=== PATIENT | female | born 1975 | race Caucasian/White ===

== ENCOUNTER 2018-09-30 05:47 | Emergency (ER) | payer OTHER, MEDICARE ==
[~2018-09-30] VITALS: Ht 162.6 cm; Wt 70.3 kg
[~2018-09-30 05:47] MED LIST: BACL10 PO; Bactrim Ds Tab1 EACH PO; Ferrous Sulfat325 M2 PO; GABA300; OMEPRAZOLE MAGN20 MG; [UNRECOGNIZED DRUG - OTHER]
[2018-09-30] MEDS ORDERED: Depo-Prove150 MG/11 (06:25)
[2018-09-30 07:39] LABS: Source, Urine Catheter
[2018-09-30 07:42] LABS: Bilirubin, Urine Neg (Neg); Blood, Urine 5+ (Neg); Glucose Qualitative, Urine Neg (Neg); Ketones, Urine 1+ (Neg); Leukocyte Esterase, Urine 3+ (Neg); Nitrite, Urine Neg (Neg); Protein, Urine 3+ (Neg); Specific Gravity, Urine 1.025 (1.003-1.022); Urobilinogen, Urine 1+ (Normal)
[2018-09-30 07:50] LABS: Appearance, Urine Hazy (Clear); Color, Urine Yellow (P-Yellow)
[2018-09-30 07:53] LABS: Bacteria Mod /hpf; Mucus Mod (0-Heavy); Red Blood Cells, Urine TNTC /hpf (0-2); Squamous Epithelial Cells Few /hpf (Few)
== END 2018-09-30 08:05 | disposition home or self-care (01) ==
LOC: ER 05:47
PROVIDERS: Emergency Medicine
DX: T83.091A Other mechanical complication of indwelling urethral catheter, initial encounter (principal); R33.9 Retention of urine, unspecified; G35 Multiple sclerosis; L89.159 Pressure ulcer of sacral region, unspecified stage; L89.319 Pressure ulcer of right buttock, unspecified stage; F17.200 Nicotine dependence, unspecified, uncomplicated
CPT/HCPCS: 51702; 51798; 81001; 87077; 87086; 87186; 99283

== ENCOUNTER 2018-10-12 09:49 | Emergency (ER) | payer MEDICARE ==
[~2018-10-12] VITALS: Ht 162.6 cm; Wt 72.6 kg
[~2018-10-12 09:49] MED LIST changes: +Depo-Prove150 MG/11
== END 2018-10-12 12:38 | disposition home or self-care (01) ==
LOC: ER 09:49
DX: T83.031A Leakage of indwelling urethral catheter, initial encounter (principal); Z79.899 Other long term (current) drug therapy; F17.200 Nicotine dependence, unspecified, uncomplicated
CPT/HCPCS: 51702; 99283

== ENCOUNTER 2018-11-18 12:14 | Emergency (ER) | payer MEDICARE ==
[~2018-11-18] VITALS: Ht 162.6 cm; Wt 77.1 kg
[2018-11-18 15:00] LABS: Source, Urine Catheter
[2018-11-18 15:16] LABS: Bilirubin, Urine Neg (Neg); Blood, Urine 5+ (Neg); Glucose Qualitative, Urine Neg (Neg); Ketones, Urine Neg (Neg); Leukocyte Esterase, Urine 3+ (Neg); Nitrite, Urine Pos (Neg); Protein, Urine 2+ (Neg); Specific Gravity, Urine 1.015 (1.003-1.022); Urobilinogen, Urine NORM (Normal)
[2018-11-18] MEDS ORDERED: TRAZ50 PO (15:22)
[2018-11-18] MEDS ORDERED: OMEPRAZOLE MAGN20 MG PO (15:23)
[2018-11-18 15:51] LABS: Appearance, Urine Cloudy (Clear); Color, Urine Yellow (P-Yellow)
[2018-11-18 15:52] LABS: Bacteria Many /hpf; Red Blood Cells, Urine 50-100 /hpf (0-2); Squamous Epithelial Cells Few /hpf (Few); White Blood Cells, Urine 25-50 /hpf (0-5)
== END 2018-11-18 16:45 | disposition home or self-care (01) ==
LOC: ER 12:14
PROVIDERS: Physician Assistant
DX: T83.038A Leakage of other urinary catheter, initial encounter (principal); F17.200 Nicotine dependence, unspecified, uncomplicated; Z79.899 Other long term (current) drug therapy
CPT/HCPCS: 51702; 81001; 87077; 87086; 87186; 99283

== ENCOUNTER 2019-03-22 03:35 | Emergency (ER) | payer MEDICARE, OTHER, SELFPAY ==
[~2019-03-22] VITALS: Ht 160 cm; Wt 77.1 kg
[~2019-03-22 03:35] MED LIST changes: -BACL10 PO; -GABA300
[2019-03-22 05:36] LABS: Source, Urine Catheter
[2019-03-22 05:42] LABS: Bilirubin, Urine Neg (Neg); Blood, Urine 4+ (Neg); Glucose Qualitative, Urine Neg (Neg); Ketones, Urine Neg (Neg); Leukocyte Esterase, Urine 3+ (Neg); Nitrite, Urine Pos (Neg); Protein, Urine 3+ (Neg); Urobilinogen, Urine NORM (Normal); pH, Urine 6.5 (5.0-8.0)
[2019-03-22 05:44] LABS: Anion Gap 8 mmol/L (6-16); Blood Urea Nitrogen 15 mg/dL (8-24); Bun/Creatinine Ratio 30.1 (12.0-20.0); CO2, Blood 25 mmol/L (21-32); Calcium, Blood 9.5 mg/dL (8.5-10.1); Chloride, Blood 110 mmol/L (98-108); Glomerular Filtration Rate >60 (60-); Glucose, Blood 90 mg/dL (70-99); Potassium, Blood 3.6 mmol/L (3.5-5.5); Sodium, Blood 143 mmol/L (136-145)
[2019-03-22 06:07] LABS: Appearance, Urine Hazy (Clear); Color, Urine Yellow (P-Yellow); White Blood Cells, Urine 25-50 /hpf (0-5)
[2019-03-22 06:08] LABS: Amorphous Light ({null, 0-Heavy}); Bacteria Many /hpf; Squamous Epithelial Cells Rare /hpf (Few)
[2019-03-22] MEDS ORDERED: Macrobid 100 M100 MG PO (06:14)
== END 2019-03-22 07:17 | disposition home or self-care (01) ==
LOC: ER 03:35
PROVIDERS: Emergency Medicine
DX: Z46.6 Encounter for fitting and adjustment of urinary device (principal); G35 Multiple sclerosis; F17.210 Nicotine dependence, cigarettes, uncomplicated
CPT/HCPCS: 51702; 80048; 81001; 87086; 99283

== ENCOUNTER 2019-04-10 17:14 | Inpatient (IN) | payer MEDICARE, OTHER ==
[~2019-04-10] VITALS: Ht 162.6 cm; Wt 82.2 kg
[~2019-04-10 17:14] MED LIST changes: +Macrobid 100 M100 MG PO
[2019-04-10 18:01] LABS: BASOPHILS ABSOLUTE AUTO 0.07 K/mm3 (0.00-0.23); BASOPHILS PERCENT AUTO 1 % (0-2); EOSINOPHILS ABSOLUTE AUTO 0.36 K/mm3 (0.00-0.68); EOSINOPHILS PERCENT AUTO 3 % (0-6); Hematocrit 41.9 % (33.0-51.0); Hemoglobin 13.6 g/dL (11.5-16.0); IMMATURE GRAN PERCENT AUTO 1 % (0-1); LYMPHOCYTES ABSOLUTE AUTO 2.52 K/mm3 (0.84-5.20); LYMPHOCYTES PERCENT AUTO 19 % (21-46); MONOCYTES ABSOLUTE AUTO 0.79 K/mm3 (0.16-1.47); MONOCYTES PERCENT AUTO 6 % (4-13); Mean Corpuscular HGB 30.8 pg (26.0-34.0); Mean Corpuscular HGB Conc 32.5 g/dL (31.5-36.5); Mean Corpuscular Volume 95 fL (80-100); Mean Platelet Volume 9.3 fL (9.1-12.4); NEUTROPHILS ABSOLUTE AUTO 9.58 K/mm3 (1.96-9.15); NEUTROPHILS PERCENT AUTO 71 % (41-73); Platelet Count 296 K/mm3 (150-400); RDW Coefficient Variation 15.3 % (11.7-14.2); RDW Standard Deviation 53.9 fL (35.1-46.3); Red Blood Cell Count 4.41 M/mm3 (3.80-5.20); White Blood Cell Count 13.42 K/mm3 (4.00-11.30)
[2019-04-10 18:21] LABS: Alanine Aminotransfer (ALT/SGP 50 U/L (12-78); Albumin, Blood 3.4 g/dL (3.4-5.0); Albumin/Globulin Ratio 0.8 (0.8-1.8); Alk Phos 70 U/L (50-136); Anion Gap 5 mmol/L (6-16); Aspartate Aminotrans (AST/SGOT 108 U/L (12-37); Bilirubin, Total 0.3 mg/dL (0.1-1.0); Blood Urea Nitrogen 12 mg/dL (8-24); Bun/Creatinine Ratio 24.3 (12.0-20.0); CO2, Blood 24 mmol/L (21-32); Calcium, Blood 8.7 mg/dL (8.5-10.1); Chloride, Blood 110 mmol/L (98-108); Creatinine, Blood 0.49 mg/dL (0.40-1.00); Globulin, Blood 4.1 g/dL (2.2-4.0); Glomerular Filtration Rate >60 (60-); Glucose, Blood 125 mg/dL (70-99); Sodium, Blood 139 mmol/L (136-145); Total Protein, Blood 7.5 g/dL (6.4-8.2)
[2019-04-10] MEDS ORDERED: BACL20 PO (21:31)
[2019-04-10] MEDS ORDERED: Neurontin600 MG PO (21:32)
[2019-04-10] MEDS ORDERED: OMEPRAZOLE MAGN20 MG PO (21:33)
[2019-04-10] MEDS ORDERED: TRAZ50 PO (21:33)
[2019-04-10] MEDS ORDERED: TROSPIUM CHLORI20 MG PO (21:34)
[2019-04-11 01:52] LABS: International Normalized Ratio 0.93; Prothrombin Time Results 9.9 Sec (9.7-11.5)
--- NOTE | 2019-04-11 07:29 | NUR ---
NURSING ICU DAYSHIFT: Assumed care of pt at approx 0700. A/O, pleasant, cooperative w/care. Chronic general weakness and BLE numbness d/t hx of MS. Skin is fairly intact though RLE is red, warm to the touch, and has scattered scabs. C/O 5/10 chronic pain of R wrist r/t carpal tunnel, home splint in place. Cardiac monitoring in place, ST, no c/o CP/pressure, RLE edema, pulses palp. L/S cta though dim in bases, O2 sat low 90's on RA, no noted cough, denies dyspnea. Abd mildly distended which pt states is normal, chronic FC in place. PIV x2, hep gtt infusing at 18.6 mls/hr (15u/kg/hr). No s/s of acute distress at this time. Call light in reach and pt is able to use w/o difficulty. Plan to change FC today and send UA as per protocol. Awaiting rounding from PMD[facility] and [facility] rec to be completed. Pt denies any questions or current needs, cont to monitor for any changes.
[2019-04-11 08:22] LABS: BASOPHILS ABSOLUTE AUTO 0.09 K/mm3 (0.00-0.23); BASOPHILS PERCENT AUTO 1 % (0-2); EOSINOPHILS ABSOLUTE AUTO 0.35 K/mm3 (0.00-0.68); EOSINOPHILS PERCENT AUTO 3 % (0-6); Hematocrit 38.1 % (33.0-51.0); Hemoglobin 12.3 g/dL (11.5-16.0); IMMATURE GRAN ABSOLUTE AUTO 0.08 K/mm3 (0.00-0.10); IMMATURE GRAN PERCENT AUTO 1 % (0-1); LYMPHOCYTES PERCENT AUTO 26 % (21-46); MONOCYTES ABSOLUTE AUTO 0.96 K/mm3 (0.16-1.47); MONOCYTES PERCENT AUTO 7 % (4-13); Mean Corpuscular HGB 31.1 pg (26.0-34.0); Mean Corpuscular HGB Conc 32.3 g/dL (31.5-36.5); Mean Corpuscular Volume 96 fL (80-100); Mean Platelet Volume 9.4 fL (9.1-12.4); NEUTROPHILS ABSOLUTE AUTO 8.13 K/mm3 (1.96-9.15); NEUTROPHILS PERCENT AUTO 63 % (41-73); Platelet Count 283 K/mm3 (150-400); RDW Coefficient Variation 15.2 % (11.7-14.2); RDW Standard Deviation 54.4 fL (35.1-46.3); Red Blood Cell Count 3.96 M/mm3 (3.80-5.20); White Blood Cell Count 12.91 K/mm3 (4.00-11.30)
[2019-04-11] MEDS ORDERED: Flonase 0.05% N16 GM (09:59)
[2019-04-11] MEDS ORDERED: ZYRTEC10 M1 PO (10:00)
[2019-04-11] MEDS ORDERED: Depo-Prove150 MG/11 IM (10:00)
[2019-04-11] MEDS ORDERED: BACLOFEN PUMP (10:01)
--- NOTE | 2019-04-11 10:08 | NUR ---
ECHOCARDIOGRAM COMPLETED
[2019-04-11 12:34] LABS: Source, Urine Catheter
[2019-04-11 12:41] LABS: Bilirubin, Urine Neg (Neg); Blood, Urine 2+ (Neg); Glucose Qualitative, Urine Neg (Neg); Ketones, Urine Neg (Neg); Leukocyte Esterase, Urine 2+ (Neg); Nitrite, Urine Neg (Neg); Protein, Urine Neg (Neg); Specific Gravity, Urine 1.015 (1.003-1.022); Urobilinogen, Urine NORM (Normal)
[2019-04-11 12:48] LABS: Appearance, Urine Clear (Clear); Color, Urine Yellow (P-Yellow)
[2019-04-11 12:49] LABS: Bacteria Few /hpf; Mucus Light (0-Heavy); Red Blood Cells, Urine 0-2 /hpf (0-2); Squamous Epithelial Cells Rare /hpf (Few)
--- NOTE | 2019-04-11 16:32 | NUR ---
NURSING ICU DAYSHIFT SUMMARY: No significant changes noted t/o shift. Respiratory/cardiac status remained unchanged, VS stable. Pt OOB to shower chair w/two staff assist. Significant weakness/numbness of LE's and decreased fine motor skills r/t hx of MS. Shower and linen change completed and pt xferred BTB. Able to assist w/some repositioning/turning. Call received from pt's mother, update provided w/consent from pt, questions answered. Hep gtt continues to infuse as per pharmacy dosing. No s/s of acute distress at this time. Pt denies any current needs, call light in reach, cont to monitor until rpt is given to NOC RN.
--- NOTE | 2019-04-11 19:30 | NUR ---
[facility] RECIEVED REPORT FROM DIANDRA. PT ALERT AND ORIENTED X 4. PT DENIES CHEST PAIN OR SOB. PERIPHERAL IV SITES ARE BOTH WNL. STABLE VITALS. PARENTS AT BEDSIDE, BUT LEAVING SOON. NO COMPLAINTS AT THIS TIME.
--- NOTE | 2019-04-12 05:47 | NUR ---
SHIFT SUMMARY NO ACUTE CHANGES OVER NIGHT. PT ALERT AND ORIENTED X 4. CURRENT GTTP: HEPARIN INFUSING @ 21UNITS/KG/HR (62KG). PT GOT MODERATE AMOUNT OF SLEEP. NO BM OVER NIGHT, ADEQUATE UOP. RLE REMAINS SWOLLEN, AND RED AROUND CALF, AND ON DORSUM OF FOOT. NO FAMILY AT BEDSIDE. BED LOW AND LOCKED. CALL LIGHT WITHIN REACH.
--- NOTE | 2019-04-12 11:23 | NUR ---
INTERVENTIONAL RADIOLOGY SPOKE WITH AN[facility]ELO IN [facility] REGARDING ORDERED CONSULT WITH DR CALLE. PER ANGELO, DR CALLE WILL NOT BE SEEING PATIENTS UNTIL 04/15/19. WILL SPEAK WITH HOSPITALIST REGARDING THIS CONSULT
--- NOTE | 2019-04-12 11:43 | NUR ---
INTERVENTIONAL RADIOLOGY CONSULT RECEIVED PHONE CALL FROM ANGELO IN [facility], PER ANGELO, DR CALLE SPOKE WITH HOSPITALIST REGARDING THIS PATIENT AND THAT DR CALLE WOULD FOLLOW UP WITH PATIENT AN OUTPATIENT
--- NOTE | 2019-04-12 18:23 | NUR ---
patient remains sitting up in wheelchair eating dinner. heparin gtt infusing at 31 ml per hour. patients family here to visit much of day
--- NOTE | 2019-04-13 06:40 | NUR ---
LYING IN HIGH FOWLERS WITH EYES CLOSED. HAS SLEPT WELL THIS SHIFT AFTER HER BATH. HEPARIN DRIP TITRATED X2 THIS SHIFT PER RX ORDERS. NO FURTHER CHANGES NOTED. DENIES PAIN, OR DISCOMFORT AT THIS TIME. SAFETY MEASURES IN PLACE. WILL GIVE HAND OFF TO ONCOMING SHIFT USING SBAR.
[2019-04-13] MEDS ORDERED: XARELTO15 MG PO (11:53)
[2019-04-13] MEDS ORDERED: CEPH500 PO (11:58)
--- NOTE | 2019-04-13 14:51 | NUR ---
DISCHARGE PT DISCHARGED HOME FROM UNIT AT APROX 1450. PT GIVEN WRITTEN AND VERBAL DISCHARGE INSTRUCTIONS AND VERBALIZED UNDERSTANDING OF THESE INSTRUCTIONS. IV'S REMOVED- PT TOLERATED WELL. OWN WHEELCHAIR TO CAR.
== END 2019-04-13 14:55 | disposition home or self-care (01) | DRG 299 ==
LOC: ER 17:14 → ICUE 23:17 → SURS 23:17 → ICUW 23:17 → ICUE 04-11 01:44 → SURS 04-12 07:22
PROVIDERS: Family Medicine; Physician Assistant; ADMIT Hospitalist
DX: I82.401 Acute embolism and thrombosis of unspecified deep veins of right lower extremity (principal); I26.99 Other pulmonary embolism without acute cor pulmonale; T83.511A Infection and inflammatory reaction due to indwelling urethral catheter, initial encounter; N39.0 Urinary tract infection, site not specified; G35 Multiple sclerosis; K21.9 Gastro-esophageal reflux disease without esophagitis; E66.9 Obesity, unspecified; F17.210 Nicotine dependence, cigarettes, uncomplicated; R00.0 Tachycardia, unspecified; M79.2 Neuralgia and neuritis, unspecified; B95.4 Other streptococcus as the cause of diseases classified elsewhere; Z68.31 Body mass index [BMI] 31.0-31.9, adult; Z99.3 Dependence on wheelchair
CPT/HCPCS: 36415; 51702; 71260; 80053; 81001; 82947; 83605; 85025; 85610; 85730; 87040; 87086; 90471; 90714; 93005; 93010; 93306; 93971; 99285-25; A9270; J0696; J1644; Q9967

== ENCOUNTER 2019-04-24 05:55 | Observation (INO) | payer MEDICARE, OTHER ==
[~2019-04-24] VITALS: Ht 162.6 cm; Wt 82.5 kg
[~2019-04-24 05:55] MED LIST changes: +BACL20 PO; +BACLOFEN PUMP; +CEPH500 PO; +Depo-Prove150 MG/11 IM; +Flonase 0.05% N16 GM; +Neurontin600 MG PO; +OMEPRAZOLE MAGN20 MG PO; +TRAZ50 PO; +TROSPIUM CHLORI20 MG PO; +XARELTO15 MG PO; +ZYRTEC10 M1 PO
--- NOTE | 2019-04-24 09:43 | NUR ---
PT ARRIVES FROM [facility] POST PERIPHERAL INTERVENTION AT 0936. INTERVENTION FOR RIGHT DVT. CATHFLO INFUSING TO TO RIGHT POP AT 1MG/HR. HEPARIN GTT AT 6MLS/HR PERIPHERALLY. IVC FILTER PLACED TO RIGHT GROIN; SITE STABLE, DRSG C/D/I. PT AWAKE BUT DROWSY, DENIES C/O PAIN, VSS.
[2019-04-24 12:34] LABS: Source, Urine Catheter
[2019-04-24 12:41] LABS: Bilirubin, Urine Neg (Neg); Blood, Urine 1+ (Neg); Glucose Qualitative, Urine Neg (Neg); Ketones, Urine Neg (Neg); Leukocyte Esterase, Urine Neg (Neg); Nitrite, Urine Neg (Neg); Protein, Urine Neg (Neg); Urobilinogen, Urine NORM (Normal); pH, Urine 6.5 (5.0-8.0)
[2019-04-24 12:53] LABS: Appearance, Urine Clear (Clear); Color, Urine Yellow (P-Yellow)
[2019-04-24 12:54] LABS: Bacteria Not Seen /hpf; Red Blood Cells, Urine 0-2 /hpf (0-2); Squamous Epithelial Cells Few /hpf (Few); White Blood Cells, Urine Rare /hpf (0-5); Yeast/Fungi Urine Mod /hpf
--- NOTE | 2019-04-24 17:31 | NUR ---
RIGHT GROIN AND RIGHT LEG REMAIN STABLE. RIGHT GROIN AND RIGHT LEG POP CHECKED Q 15 X4, Q 30 X2, THEN Q 1HR. NEURO CHECK WNL AT 0940, 1340, 1740. HEPARIN GTT TO POP AT 6ML, CATHFLO AT 0.5MG/HR TO POP. PT SLEPT MOST OF SHIFT; DIFFICULT TO AROUSE AT TIMES. VSS. HOME MEDS ORDERED. PT SUPINE WITH HOB AT 20.
--- NOTE | 2019-04-24 18:29 | NUR ---
ASSUMED CARE: RECEIVED REPROT FROM DAY CHARO Caldwell PT CURRENTLY HAS RUNNING HEPARIN AT 6 ML/HR. CATHFLO RUNNING AT 0.5 MG/HR. CATH APPEARS TO BE STABLE NO BLEEDING, REDNESS OR SWELLING AT THE SITE. PT IS PLACED IN [place]SE [place] TO TAKE MEDICATIONS. PT STATES SHE CAN NOT EAT HER DINNER BECAUSE SHE CAN'T SIT STREIGHT UP. ASSISTED PT IN ATEMPTING PUDDING FIRST NO S/S OF CHOAKING, PT SIPPED ON WATER WITH NO ISSUES ADMINISTERED MEDICATIONS 1 OR 2 AT AT TIME. NO ISSUES WITH SWALLOWING, PT DECIDEDS SHE WILL ATEMPT DINNER. PLACED DINNER IN FRONT OF HER TO PICK THROUGH.
--- NOTE | 2019-04-24 19:27 | NUR ---
DR. Pepe NOTIFIED: RE: ORDER FOR CATHFLO WOULD COMPLETE AT 0300 am. ORDER TO CONTINUE CATHFLO AT 0.5 mg (10mL/hr) UNTIL PT GOES TO KITCHEN HELP HANDYMAN. WILL PUT IN NURSE NOTIFY.
--- NOTE | 2019-04-25 01:33 | NUR ---
FIBRINOGEN REDRAWN. THE 4 FIBRINOGEN DRAWN FROM SHEATH. LOW VALUE OF 50 NOTED. ASIA FROM LAB VERIFIED THAT FIRST TWO VALUES WERE ACTUALLY DRAWN FROM PERIFERAL SITES AND NOT FROM SHEATH. A STAT FIBRINOGEN DRAWN STAT PERIFERALLY AND CORRELATED WITH THE PREVIOUS FIRST TWO LAB DRAWS.
--- NOTE | 2019-04-25 04:33 | NUR ---
PULSES NOW PALPABLE: BILATERAL PEDAL AND TIBIAL PULSES PALPABLE. PT REMAINS A+O, X4, VSS. PT CURRENTLY AWAKE WATCHING TV. HEPARIN AND CATHFLO CONTINUING TO INFUSE PER ORDERS. PT NPO SINCE MIDNIGHT. PT TURNED AND BACK/COCCYX ASSESSED AND ARE WNL WITH NO REDNESS OR BREAKDOWN NOTED. CALL LIGHT WITHING REACH WITH PT USING APPROPRIATELY.
--- NOTE | 2019-04-25 12:30 | NUR ---
PT RETURNED FROM [facility] POST PROCEDURE. RT POPLITEAL SITE SOFT/STABLE/NO BLEEDING/OOZING FROM SITE. WILL CONTINUE TO MONITOR. AWAITING DR CALLE TO COME TALK TO PT/FAMILY RE: PROCEDURE RESULTS, DISCHARGE INSTRUCTIONS. PT GIVEN LUNCH AT THIS TIME, SHE IS A+O X3 AND ABLE TO FOLLOW COMMANDS.
--- NOTE | 2019-04-25 12:56 | NUR ---
DISCHARGE UPDATE: SPOKE WITH [facility] STAFF AND ASKED IF THEY COULD FIND DR CALLE FOR FURTHER ORDERS AND DISCHARGE ORDERS ON THIS PT.
--- NOTE | 2019-04-25 15:50 | NUR ---
DISCHARGE INSTRUCTIONS: WRITTEN/VERBAL DISCHARGE INSTRUCTIONS GIVEN TO PT/MOM/DAD. ALL QUESTIONS ANSWERED. ALL PT BELONGINGS SENT WITH PT. IV D/C'D FROM LT HAND, CATH INTACT. ASSISTED PT EITH TNX TO W/C WITH TNX BOARD AND 1 PERSON ASSIST. PT ESCORTED AND ASSISTED INTO CAR BY CIARA MILLAN.
--- NOTE | 2019-04-25 17:14 | NUR ---
Provided prayer and emotional support per pt's request. Marina responded well to interventions.
== END 2019-04-25 15:50 | disposition home or self-care (01) ==
LOC: MHTC 05:55 → ICUW 09:17 → MHTC 17:30 → ICUE 17:30 → MHTC 17:32 → ICUE 17:32
PROVIDERS: ADMIT Radiology Diagnostic Radiology
PROC: 04CM3ZZ Extirpation of Matter from Right Popliteal Artery, Percutaneous Approach (ICD-10-PCS; principal; 2019-04-24)
DX: I82.431 Acute embolism and thrombosis of right popliteal vein (principal); I26.99 Other pulmonary embolism without acute cor pulmonale; G35 Multiple sclerosis; K21.9 Gastro-esophageal reflux disease without esophagitis; E66.9 Obesity, unspecified; Z79.899 Other long term (current) drug therapy; Z79.01 Long term (current) use of anticoagulants; Z87.891 Personal history of nicotine dependence
CPT/HCPCS: 36415; 37184; 37191; 37212; 37214; 37248; 75820; 75825; 76937; 81001; 84703; 85384; 87086; 99152; 99153; A9270-GY; C1724; C1725; C1751; C1769; C1880; C1887; C1894; G0378; J1644; J2250; J2997; J3010; J7030; J7040; J7050; Q9967

== ENCOUNTER → 2019-06-25 | Outpatient (CLI) | payer OTHER ==
[2019-06-27 13:07] LABS: HPV 16 Negative (Negative); HPV 18 Negative (Negative); HPV OTHER HR TYPES Negative (Negative)
== END | disposition home or self-care (01) ==
LOC: LAB 16:19 → LAB SHORT 16:19
PROVIDERS: Obstetrics & Gynecology
DX: Z01.419 Encounter for gynecological examination (general) (routine) without abnormal findings (principal)
CPT/HCPCS: 87624; G0123

== ENCOUNTER 2019-07-09 00:27 | Day surgery (SDC) | payer OTHER | END 2019-07-09 22:36 | disposition home or self-care (01) | LOC: WOUND 00:27 | DX: L89.153 Pressure ulcer of sacral region, stage 3 (principal); L89.213 Pressure ulcer of right hip, stage 3; L89.892 Pressure ulcer of other site, stage 2; L89.602 Pressure ulcer of unspecified heel, stage 2; L97.521 Non-pressure chronic ulcer of other part of left foot limited to breakdown of skin; L97.519 Non-pressure chronic ulcer of other part of right foot with unspecified severity; G35 Multiple sclerosis; Z87.891 Personal history of nicotine dependence | CPT/HCPCS: 87071; 87075; 87077; 87147; 87186; 87205; G0463 ==

== ENCOUNTER 2019-07-15 00:25 | Day surgery (SDC) | payer OTHER | END 2019-07-15 22:39 | disposition home or self-care (01) | LOC: WOUND 00:25 | DX: L89.153 Pressure ulcer of sacral region, stage 3 (principal); L89.612 Pressure ulcer of right heel, stage 2; L97.521 Non-pressure chronic ulcer of other part of left foot limited to breakdown of skin; G35 Multiple sclerosis; L97.519 Non-pressure chronic ulcer of other part of right foot with unspecified severity ==

== ENCOUNTER 2019-07-22 13:53 | Day surgery (SDC) | payer OTHER | END 2019-07-22 23:15 | disposition home or self-care (01) | LOC: WOUND 13:53 | DX: L89.153 Pressure ulcer of sacral region, stage 3 (principal); L89.613 Pressure ulcer of right heel, stage 3; S80.821A Blister (nonthermal), right lower leg, initial encounter; L97.521 Non-pressure chronic ulcer of other part of left foot limited to breakdown of skin; G35 Multiple sclerosis ==

== ENCOUNTER 2019-07-29 13:54 | Day surgery (SDC) | payer OTHER | END 2019-07-29 22:52 | disposition home or self-care (01) | LOC: WOUND 13:54 | DX: L89.153 Pressure ulcer of sacral region, stage 3 (principal); L89.602 Pressure ulcer of unspecified heel, stage 2; S80.821D Blister (nonthermal), right lower leg, subsequent encounter; S90.822A Blister (nonthermal), left foot, initial encounter; G35 Multiple sclerosis; X58.XXXD Exposure to other specified factors, subsequent encounter; Z87.891 Personal history of nicotine dependence ==

== ENCOUNTER 2019-08-05 14:12 | Day surgery (SDC) | payer OTHER | END 2019-08-05 22:34 | disposition home or self-care (01) | LOC: WOUND 14:12 | DX: L89.153 Pressure ulcer of sacral region, stage 3 (principal); L89.622 Pressure ulcer of left heel, stage 2; S80.821D Blister (nonthermal), right lower leg, subsequent encounter; S90.822D Blister (nonthermal), left foot, subsequent encounter; G35 Multiple sclerosis; Z87.891 Personal history of nicotine dependence ==

== ENCOUNTER 2019-08-08 08:58 | Day surgery (SDC) | payer OTHER ==
[~2019-08-08] VITALS: Ht 160 cm; Wt 78.0 kg
--- NOTE | 2019-08-08 09:35 | NUR ---
Pt arrived with villanueva cath to gravity drainage. Urine dark with sediment. No fever.
--- NOTE | 2019-08-08 10:27 | NUR ---
Pt arrived via wheelchair w/ MS past 24 yrs, parents with patient. Pt with bowel movement and attempting to have another. Pt has been NPO and is ready for surgery.
--- NOTE | 2019-08-08 12:39 | NUR ---
PT BACK TO RECOVERY ROOM POST PROCEDURE. RIGHT JUGULAR SITE CDI, NO SWELLING OR BLEEDING NOTED. PT AWAKE BUT DROWSY. DENIES ANY DISCOMFORT.
--- NOTE | 2019-08-08 15:30 | NUR ---
DISCHARGE PT REMAINED A&OX3 QAND DENIED ANY PAIN DURING RECOVERY. L JUGULAR SITE-CDI-NO HETOMA NOTED. ASSITED PT WITH DRESSING. ASSISTED PT TO PERSONAL WHEELCHAIR WITH RONALDO LIFT-ASSISTED BY MICHELLE Moralez RN, SUNSHINE Nevarez RN AND THIS NURSE. IV DC'D WITH TIP IN TACT. DISCHARGE PAPERWORK GONE OVER WITH PT AND FAMILY. PT AND FAMILY VERBALLY STATED THE UNDERSTANDING OF THE DISCHARGE EDUCATION AND DENIED ANY QUESTIONS AT THIS TIME. [facility] CALLED FOR TRANSPORT. PT WHEELED OUT BY THIS NURSE.
== END 2019-08-08 15:20 | disposition home or self-care (01) ==
LOC: MHTC 08:58
DX: Z45.2 Encounter for adjustment and management of vascular access device (principal); I82.409 Acute embolism and thrombosis of unspecified deep veins of unspecified lower extremity; I26.99 Other pulmonary embolism without acute cor pulmonale
CPT/HCPCS: 37193; 99152; C1769; C1773; C1880; C1894; J1644; J2250; J3010; J7030; J7040; Q9967

== ENCOUNTER 2019-08-14 15:58 | Day surgery (SDC) | payer OTHER | END 2019-08-14 22:59 | disposition home or self-care (01) | LOC: WOUND 15:58 | DX: L89.613 Pressure ulcer of right heel, stage 3 (principal); L89.153 Pressure ulcer of sacral region, stage 3; L89.622 Pressure ulcer of left heel, stage 2; L97.818 Non-pressure chronic ulcer of other part of right lower leg with other specified severity; S90.822D Blister (nonthermal), left foot, subsequent encounter; S80.821D Blister (nonthermal), right lower leg, subsequent encounter; G35 Multiple sclerosis; Z87.891 Personal history of nicotine dependence | CPT/HCPCS: 87071; 87075; 87077; 87186; 87205 ==

== ENCOUNTER 2019-08-19 13:51 | Day surgery (SDC) | payer OTHER ==
[2019-08-20] MEDS ORDERED: ALBU90OI6 INH (22:41)
== END 2019-08-19 22:37 | disposition home or self-care (01) ==
LOC: WOUND 13:51
DX: I96 Gangrene, not elsewhere classified (principal); L89.153 Pressure ulcer of sacral region, stage 3; L89.613 Pressure ulcer of right heel, stage 3; L89.622 Pressure ulcer of left heel, stage 2; S81.801A Unspecified open wound, right lower leg, initial encounter; S90.822D Blister (nonthermal), left foot, subsequent encounter; G35 Multiple sclerosis; G62.9 Polyneuropathy, unspecified; Z86.718 Personal history of other venous thrombosis and embolism; Z86.711 Personal history of pulmonary embolism; Z79.01 Long term (current) use of anticoagulants; Z79.899 Other long term (current) drug therapy; Z87.891 Personal history of nicotine dependence; Z99.3 Dependence on wheelchair; X58.XXXA Exposure to other specified factors, initial encounter

== ENCOUNTER 2019-08-20 21:34 | Emergency (ER) | payer OTHER ==
[~2019-08-20] VITALS: Ht 162.6 cm; Wt 79.4 kg
[2019-08-20] MEDS ORDERED: ALBU90OI6 INH (22:41)
== END 2019-08-20 23:10 | disposition home or self-care (01) ==
LOC: ER 21:34
DX: R06.02 Shortness of breath (principal); Z76.0 Encounter for issue of repeat prescription; G35 Multiple sclerosis; Z87.891 Personal history of nicotine dependence; Z79.899 Other long term (current) drug therapy; Z79.01 Long term (current) use of anticoagulants
CPT/HCPCS: 99281

== ENCOUNTER 2019-08-29 08:58 | Day surgery (SDC) | payer OTHER ==
[~2019-08-29 08:58] MED LIST changes: +ALBU90OI6 INH
== END 2019-08-29 23:05 | disposition home or self-care (01) ==
LOC: WOUND 08:58
DX: I96 Gangrene, not elsewhere classified (principal); L89.613 Pressure ulcer of right heel, stage 3; L89.153 Pressure ulcer of sacral region, stage 3; S80.921A Unspecified superficial injury of right lower leg, initial encounter; G35 Multiple sclerosis; G62.9 Polyneuropathy, unspecified; J44.9 Chronic obstructive pulmonary disease, unspecified; K21.9 Gastro-esophageal reflux disease without esophagitis; Z87.891 Personal history of nicotine dependence; Z86.718 Personal history of other venous thrombosis and embolism; Z79.01 Long term (current) use of anticoagulants; Z79.899 Other long term (current) drug therapy; X58.XXXA Exposure to other specified factors, initial encounter

== ENCOUNTER 2019-09-09 13:46 | Day surgery (SDC) | payer OTHER | END 2019-09-09 22:59 | disposition home or self-care (01) | LOC: WOUND 13:46 | DX: I96 Gangrene, not elsewhere classified (principal); L89.153 Pressure ulcer of sacral region, stage 3; L89.613 Pressure ulcer of right heel, stage 3; S81.801A Unspecified open wound, right lower leg, initial encounter; G35 Multiple sclerosis; G62.9 Polyneuropathy, unspecified; Z79.51 Long term (current) use of inhaled steroids; Z79.899 Other long term (current) drug therapy; Z86.718 Personal history of other venous thrombosis and embolism; Z86.711 Personal history of pulmonary embolism; Z87.891 Personal history of nicotine dependence; X58.XXXA Exposure to other specified factors, initial encounter ==

== ENCOUNTER → 2019-09-20 | Outpatient (CLI) | payer OTHER ==
[2019-09-20 17:51] LABS: Source, Urine Catheter
[2019-09-20 19:10] LABS: Bilirubin, Urine Neg (Neg); Blood, Urine 4+ (Neg); Glucose Qualitative, Urine Neg (Neg); Ketones, Urine 1+ (Neg); Leukocyte Esterase, Urine 3+ (Neg); Nitrite, Urine Pos (Neg); Protein, Urine 3+ (Neg); Specific Gravity, Urine 1.025 (1.003-1.022); Urobilinogen, Urine NORM (Normal)
[2019-09-20 19:16] LABS: Appearance, Urine Turbid (Clear); Color, Urine Yellow (P-Yellow)
[2019-09-20 19:17] LABS: White Blood Cells, Urine TNTC /hpf (0-5)
[2019-09-20 19:18] LABS: Bacteria Many /hpf; Red Blood Cells, Urine TNTC /hpf (0-2); Squamous Epithelial Cells Not Seen /hpf (Few)
== END | disposition home or self-care (01) ==
LOC: LAB 17:48 → LAB SHORT 17:48
PROVIDERS: Family Medicine
DX: Z46.6 Encounter for fitting and adjustment of urinary device (principal); N39.0 Urinary tract infection, site not specified; N31.9 Neuromuscular dysfunction of bladder, unspecified
CPT/HCPCS: 81001; 87077; 87086; 87186

== ENCOUNTER 2019-09-23 14:03 | Day surgery (SDC) | payer OTHER | END 2019-09-23 22:36 | disposition home or self-care (01) | LOC: WOUND 14:03 | DX: L89.153 Pressure ulcer of sacral region, stage 3 (principal); L89.613 Pressure ulcer of right heel, stage 3; S80.821D Blister (nonthermal), right lower leg, subsequent encounter; G35 Multiple sclerosis; Z87.891 Personal history of nicotine dependence ==

== ENCOUNTER 2019-09-30 13:40 | Day surgery (SDC) | payer OTHER | END 2019-09-30 22:52 | disposition home or self-care (01) | LOC: WOUND 13:40 | DX: L97.819 Non-pressure chronic ulcer of other part of right lower leg with unspecified severity (principal); G35 Multiple sclerosis; Z87.891 Personal history of nicotine dependence ==

== ENCOUNTER 2019-10-07 13:24 | Day surgery (SDC) | payer OTHER | END 2019-10-07 22:51 | disposition home or self-care (01) | LOC: WOUND 13:24 | DX: L97.819 Non-pressure chronic ulcer of other part of right lower leg with unspecified severity (principal); L89.621 Pressure ulcer of left heel, stage 1; G35 Multiple sclerosis; Z87.891 Personal history of nicotine dependence ==

== ENCOUNTER 2019-10-14 13:58 | Day surgery (SDC) | payer OTHER | END 2019-10-14 22:36 | disposition home or self-care (01) | LOC: WOUND 13:58 | DX: S81.801A Unspecified open wound, right lower leg, initial encounter (principal); I96 Gangrene, not elsewhere classified; G35 Multiple sclerosis; J32.9 Chronic sinusitis, unspecified; Z79.899 Other long term (current) drug therapy; Z79.51 Long term (current) use of inhaled steroids; Z87.891 Personal history of nicotine dependence; Z86.718 Personal history of other venous thrombosis and embolism; Z86.711 Personal history of pulmonary embolism; X58.XXXA Exposure to other specified factors, initial encounter | CPT/HCPCS: G0463 ==

== ENCOUNTER 2019-10-21 00:20 | Day surgery (SDC) | payer OTHER | END 2019-10-21 22:39 | disposition home or self-care (01) | LOC: WOUND 00:20 | DX: S81.801A Unspecified open wound, right lower leg, initial encounter (principal); I96 Gangrene, not elsewhere classified; L97.812 Non-pressure chronic ulcer of other part of right lower leg with fat layer exposed; G35 Multiple sclerosis; J32.9 Chronic sinusitis, unspecified; G62.9 Polyneuropathy, unspecified; Z86.718 Personal history of other venous thrombosis and embolism; Z79.01 Long term (current) use of anticoagulants; Z79.51 Long term (current) use of inhaled steroids; Z79.899 Other long term (current) drug therapy; Z86.711 Personal history of pulmonary embolism; Z87.891 Personal history of nicotine dependence; X58.XXXA Exposure to other specified factors, initial encounter ==

== ENCOUNTER 2019-11-06 00:17 | Day surgery (SDC) | payer OTHER | END 2019-11-06 22:52 | disposition home or self-care (01) | LOC: WOUND 00:17 | DX: L97.812 Non-pressure chronic ulcer of other part of right lower leg with fat layer exposed (principal); G35 Multiple sclerosis; Z86.711 Personal history of pulmonary embolism; Z86.718 Personal history of other venous thrombosis and embolism; Z87.891 Personal history of nicotine dependence | CPT/HCPCS: G0463 ==

== ENCOUNTER 2019-11-11 00:16 | Day surgery (SDC) | payer OTHER | END 2019-11-11 22:40 | disposition home or self-care (01) | LOC: WOUND 00:16 | DX: L97.819 Non-pressure chronic ulcer of other part of right lower leg with unspecified severity (principal); G35 Multiple sclerosis; Z99.3 Dependence on wheelchair; Z87.891 Personal history of nicotine dependence ==

== ENCOUNTER 2019-11-18 00:23 | Day surgery (SDC) | payer OTHER | END 2019-11-18 23:07 | disposition home or self-care (01) | LOC: WOUND 00:23 | DX: L97.819 Non-pressure chronic ulcer of other part of right lower leg with unspecified severity (principal); G35 Multiple sclerosis; Z87.891 Personal history of nicotine dependence ==

== ENCOUNTER 2019-11-25 00:25 | Day surgery (SDC) | payer OTHER | END 2019-11-25 22:01 | LOC: WOUND 00:25 | DX: G35 Multiple sclerosis (principal); L97.819 Non-pressure chronic ulcer of other part of right lower leg with unspecified severity; I73.9 Peripheral vascular disease, unspecified; Z87.891 Personal history of nicotine dependence; Z79.899 Other long term (current) drug therapy ==

== ENCOUNTER 2019-12-06 01:14 | Day surgery (SDC) | payer OTHER | END 2019-12-06 23:26 | disposition home or self-care (01) | LOC: WOUND 01:14 | DX: L97.819 Non-pressure chronic ulcer of other part of right lower leg with unspecified severity (principal); I73.9 Peripheral vascular disease, unspecified; G35 Multiple sclerosis; Z79.51 Long term (current) use of inhaled steroids; Z79.899 Other long term (current) drug therapy; Z86.711 Personal history of pulmonary embolism; Z86.718 Personal history of other venous thrombosis and embolism; Z87.891 Personal history of nicotine dependence ==

== ENCOUNTER 2019-12-09 00:33 | Day surgery (SDC) | payer OTHER | END 2019-12-09 22:43 | disposition home or self-care (01) | LOC: WOUND 00:33 | DX: L97.819 Non-pressure chronic ulcer of other part of right lower leg with unspecified severity (principal); I73.9 Peripheral vascular disease, unspecified; G35 Multiple sclerosis; Z87.891 Personal history of nicotine dependence; Z79.899 Other long term (current) drug therapy ==

== ENCOUNTER 2019-12-16 00:14 | Day surgery (SDC) | payer OTHER | END 2019-12-16 12:00 | disposition home or self-care (01) | LOC: WOUND 00:14 | DX: L97.819 Non-pressure chronic ulcer of other part of right lower leg with unspecified severity (principal); G35 Multiple sclerosis; I73.9 Peripheral vascular disease, unspecified; Z87.891 Personal history of nicotine dependence; Z79.899 Other long term (current) drug therapy | CPT/HCPCS: G0463 ==

== ENCOUNTER → 2019-12-20 | Outpatient (CLI) | payer OTHER ==
[2019-12-20 16:02] LABS: Source, Urine Catheter
[2019-12-20 17:34] LABS: Appearance, Urine Hazy (Clear); Bilirubin, Urine Neg (Neg); Blood, Urine 5+ (Neg); Color, Urine Red (P-Yellow); Glucose Qualitative, Urine Neg (Neg); Ketones, Urine Neg (Neg); Leukocyte Esterase, Urine 3+ (Neg); Nitrite, Urine Pos (Neg); Protein, Urine 3+ (Neg); Specific Gravity, Urine 1.005 (1.003-1.022); Urobilinogen, Urine NORM (Normal)
[2019-12-20 18:23] LABS: Bacteria Mod /hpf; Red Blood Cells, Urine TNTC /hpf (0-2); Squamous Epithelial Cells Few /hpf (Few); White Blood Cells, Urine 25-50 /hpf (0-5)
== END | disposition home or self-care (01) ==
LOC: LAB SHORT 15:58 → OLS 15:58
PROVIDERS: Family Medicine
DX: N39.0 Urinary tract infection, site not specified (principal)
CPT/HCPCS: 81001; 87077; 87086; 87186

== ENCOUNTER 2019-12-23 00:20 | Day surgery (SDC) | payer OTHER | END 2019-12-23 22:48 | disposition home or self-care (01) | LOC: WOUND 00:20 | DX: L97.819 Non-pressure chronic ulcer of other part of right lower leg with unspecified severity (principal); I73.9 Peripheral vascular disease, unspecified; G35 Multiple sclerosis; Z87.891 Personal history of nicotine dependence | CPT/HCPCS: G0463 ==

== ENCOUNTER 2020-03-15 08:13 | Inpatient (IN) | payer OTHER ==
[~2020-03-15] VITALS: Ht 162.6 cm; Wt 86.1 kg
[~2020-03-15 08:13] MED LIST changes: -BACL20 PO; -Neurontin600 MG PO; -OMEPRAZOLE MAGN20 MG PO; -TRAZ50 PO; -XARELTO15 MG PO
[2020-03-15 08:41] LABS: BASOPHILS ABSOLUTE AUTO 0.08 K/mm3 (0.00-0.23); BASOPHILS PERCENT AUTO 1 % (0-2); EOSINOPHILS ABSOLUTE AUTO 0.07 K/mm3 (0.00-0.68); EOSINOPHILS PERCENT AUTO 1 % (0-6); Hematocrit 36.3 % (33.0-51.0); Hemoglobin 11.4 g/dL (11.5-16.0); IMMATURE GRAN ABSOLUTE AUTO 0.22 K/mm3 (0.00-0.10); IMMATURE GRAN PERCENT AUTO 2 % (0-1); LYMPHOCYTES ABSOLUTE AUTO 0.66 K/mm3 (0.84-5.20); LYMPHOCYTES PERCENT AUTO 5 % (21-46); MONOCYTES ABSOLUTE AUTO 0.49 K/mm3 (0.16-1.47); MONOCYTES PERCENT AUTO 3 % (4-13); Mean Corpuscular HGB 28.3 pg (26.0-34.0); Mean Corpuscular HGB Conc 31.4 g/dL (31.5-36.5); Mean Corpuscular Volume 90 fL (80-100); Mean Platelet Volume 9.1 fL (9.1-12.4); NEUTROPHILS ABSOLUTE AUTO 12.82 K/mm3 (1.96-9.15); NEUTROPHILS PERCENT AUTO 89 % (41-73); Platelet Count 268 K/mm3 (150-400); RDW Coefficient Variation 15.9 % (11.7-14.2); RDW Standard Deviation 52.8 fL (35.1-46.3); Red Blood Cell Count 4.03 M/mm3 (3.80-5.20); White Blood Cell Count 14.34 K/mm3 (4.00-11.30)
[2020-03-15 09:03] LABS: Alanine Aminotransfer (ALT/SGP 67 U/L (12-78); Albumin, Blood 2.6 g/dL (3.4-5.0); Albumin/Globulin Ratio 0.5 (0.8-1.8); Alk Phos 130 U/L (50-136); Anion Gap 7 mmol/L (6-16); Aspartate Aminotrans (AST/SGOT 79 U/L (12-37); Bilirubin, Total 0.7 mg/dL (0.1-1.0); Blood Urea Nitrogen 15 mg/dL (8-24); Bun/Creatinine Ratio 26.3 (12.0-20.0); CO2, Blood 22 mmol/L (21-32); Calcium, Blood 8.6 mg/dL (8.5-10.1); Chloride, Blood 108 mmol/L (98-108); Creatinine, Blood 0.57 mg/dL (0.40-1.00); Globulin, Blood 5.2 g/dL (2.2-4.0); Glomerular Filtration Rate >60 (60-); Glucose, Blood 160 mg/dL (70-99); Potassium, Blood 3.1 mmol/L (3.5-5.5); Sodium, Blood 137 mmol/L (136-145); Total Protein, Blood 7.8 g/dL (6.4-8.2)
[2020-03-15 11:52] LABS: Source, Urine Catheter
[2020-03-15 11:54] LABS: Bilirubin, Urine Neg (Neg); Blood, Urine 5+ (Neg); Glucose Qualitative, Urine Neg (Neg); Ketones, Urine 1+ (Neg); Leukocyte Esterase, Urine 2+ (Neg); Nitrite, Urine Neg (Neg); Protein, Urine 3+ (Neg); Specific Gravity, Urine 1.015 (1.003-1.022); Urobilinogen, Urine NORM (Normal)
[2020-03-15 12:02] LABS: Appearance, Urine Hazy (Clear); Color, Urine Yellow (P-Yellow)
[2020-03-15 12:04] LABS: Bacteria Mod /hpf; Squamous Epithelial Cells Rare /hpf (Few)
[2020-03-15] MEDS ORDERED: XARELTO20 MG PO (12:55)
[2020-03-15] MEDS ORDERED: Toviaz8 MG PO (12:55)
[2020-03-15] MEDS ORDERED: TRAZ50 PO (12:57)
[2020-03-15] MEDS ORDERED: OMEPRAZOLE MAGN20 MG PO (12:58)
[2020-03-15] MEDS ORDERED: Ventolin/Prove6.7 GM INH (12:58)
[2020-03-15] MEDS ORDERED: BREO ELLIPTA 11 EAC1 INH (12:59)
[2020-03-15] MEDS ORDERED: Neurontin600 MG PO (13:11)
[2020-03-15] MEDS ORDERED: BACL20 PO (13:14)
[2020-03-15] MEDS ORDERED: DOC250 PO (13:51)
[2020-03-15] MEDS ORDERED: [UNRECOGNIZED DRUG - OTHER] TOP (13:51)
[2020-03-15] MEDS ORDERED: AZO BLADDER CO300 MG PO (13:52)
--- NOTE | 2020-03-15 19:01 | NUR ---
shift summary patient is pleasant, alert and oriented. she has MS and is wheelchair to bedbound at baseline. she is taken care of by her parents at home. she takes medications whole with water. she does have a baclofen pump on her left side. her legs are very stiff, and she takes tylenol and ibuprofen at home for pain. she ahs only comlained of a headache since she has been here.
[2020-03-16 04:40] LABS: Hematocrit 33.1 % (33.0-51.0); Hemoglobin 10.6 g/dL (11.5-16.0); Mean Corpuscular HGB 28.1 pg (26.0-34.0); Mean Corpuscular Volume 88 fL (80-100); RDW Standard Deviation 51.8 fL (35.1-46.3); Red Blood Cell Count 3.77 M/mm3 (3.80-5.20); White Blood Cell Count 9.66 K/mm3 (4.00-11.30)
[2020-03-16 04:43] LABS: Mean Platelet Volume 9.8 fL (9.1-12.4); Platelet Count 151 K/mm3 (150-400)
[2020-03-16 04:58] LABS: Anion Gap 6 mmol/L (6-16); Blood Urea Nitrogen 9 mg/dL (8-24); CO2, Blood 23 mmol/L (21-32); Chloride, Blood 107 mmol/L (98-108); Creatinine, Blood 0.53 mg/dL (0.40-1.00); Glomerular Filtration Rate >60 (60-); Glucose, Blood 98 mg/dL (70-99); Potassium, Blood 3.2 mmol/L (3.5-5.5); Sodium, Blood 136 mmol/L (136-145)
--- NOTE | 2020-03-16 05:52 | NUR ---
POSTIVE BLOOD CULTURES 2ND SET DR. ACHARYA NOTIFIED THE PT SECOND SET OF BLOOD CX CAME BACK POSITIVE FOR GRAM POSTIVE BACILLI, AND GRAM POSITIVE COCCI IN CHAINS. PT IS ON IV ROCEPHIN. DR. ACHARYA MADE AWARE OF THAT. NO ADDITIONAL ORDERS WERE GIVEN.
--- NOTE | 2020-03-16 05:54 | NUR ---
SHIFT SUMMARY PT HAS RESTED MOST OF THE NIGHT. SHE IS A/OX4 PLESANT AND COOPERATIVE WITH CARE. PT DID HAVE SOME VISUAL HALLUCINATIONS THIS SHIFT. SHE THOUGHT THAT SOMEONE WAS TRYING TO BREAK THROUGH THE BATHROOM DOOR. OTHERWISE PT HAS RESTED WITHOUT INCIDENT. PT HAS HAD BOTH BLOOD CULTURES COME BACK POSITIVE THIS SHIFT. PROVIDERS NOTIFIED. IV ROCEPHIN IS PROVIDING ADEQUATE COVERAGE AND NO NEW ORDERS WERE GIVEN. PT IS TACYCARDIC PROVIDER IS AWARE. DAYSHIFT CHARO BOWLING NOTIFED PROVIDER AND NO NEW ORDERS WERE GIVEN. HEART RATE UNCHANGED FROM DAYSHIFT 03/15/20. IV PATENT AND DRAINING. PT DENIES NEEDS WHEN ASKED. BED IN LOWEST POSITION, CALL LIGHT WITHIN REACH. WILL CONTINUE TO MONITOR AND REPORT TO ONCOMING RN.
--- NOTE | 2020-03-16 14:32 | NUR ---
STUDENT DOCUMENTATION REVIEW. THIS RN REVIEWED AND AGREES WITH TAKER DOWNHANK'S PHYSICAL ASSESSMENT AND DOCUMENTATION.
--- NOTE | 2020-03-16 15:11 | NUR ---
CATHETER LEAKING PT'S CATHETER FOUND LEAKING. BOBY AND CATHETER CARE COMPLETED. LUONG BALLOON DEFLATED. CATHETER SLIGHTLY INSERTED FURTHER. BALLOON REINFLATED WITH 10CC'S SALINE. WILL MONITOR FOR FURTHER LEAKING.
--- NOTE | 2020-03-16 17:00 | NUR ---
ELEVATED BLOOD PRESSURE PT'S BLOOD PRESSURE WAS ELEVATED AT 193/138. SHORTLY AFTER BLOOD PRESSURE WAS REASSESSED AND REVEALED A PRESSURE OF 128/81. HEART RATE ELEVATED IN 110'S, HAS BEEN THIS WAY SINCE ADMISSION. MD OLIVERA.
--- NOTE | 2020-03-16 17:07 | NUR ---
SHIFT SUMMARY PT'S HEART RATE REMAINS UNCHANGED SINCE 03/15/2020. PT'S CATHETER WAS LEAKING EARLIER TODAY. CATHETER IS NO LONGER LEAKING AT THIS TIME AFTER INTERVENTIONS DONE. PT HAS BEEN CALM AND COOPERATIVE THROUGHOUT SHIFT. NO OTHER ACUTE CHANGES IN ASSESSMENT AT THIS TIME. PT IS RESTING IN BED. PT STATES NO PAIN OR FURTHER NEEDS AT THIS TIME.
[2020-03-17 04:48] LABS: BASOPHILS ABSOLUTE AUTO 0.07 K/mm3 (0.00-0.23); BASOPHILS PERCENT AUTO 1 % (0-2); EOSINOPHILS ABSOLUTE AUTO 0.16 K/mm3 (0.00-0.68); EOSINOPHILS PERCENT AUTO 2 % (0-6); Hematocrit 31.6 % (33.0-51.0); IMMATURE GRAN ABSOLUTE AUTO 0.13 K/mm3 (0.00-0.10); IMMATURE GRAN PERCENT AUTO 1 % (0-1); LYMPHOCYTES PERCENT AUTO 22 % (21-46); MONOCYTES ABSOLUTE AUTO 0.73 K/mm3 (0.16-1.47); MONOCYTES PERCENT AUTO 8 % (4-13); Mean Corpuscular HGB 28.4 pg (26.0-34.0); Mean Corpuscular HGB Conc 31.6 g/dL (31.5-36.5); Mean Corpuscular Volume 90 fL (80-100); Mean Platelet Volume 9.7 fL (9.1-12.4); NEUTROPHILS ABSOLUTE AUTO 5.96 K/mm3 (1.96-9.15); NEUTROPHILS PERCENT AUTO 66 % (41-73); Platelet Count 217 K/mm3 (150-400); RDW Coefficient Variation 16.3 % (11.7-14.2); RDW Standard Deviation 53.7 fL (35.1-46.3); Red Blood Cell Count 3.52 M/mm3 (3.80-5.20); White Blood Cell Count 9.05 K/mm3 (4.00-11.30)
[2020-03-17 05:08] LABS: Anion Gap 4 mmol/L (6-16); Blood Urea Nitrogen 8 mg/dL (8-24); Bun/Creatinine Ratio 15.1 (12.0-20.0); CO2, Blood 24 mmol/L (21-32); Calcium, Blood 8.3 mg/dL (8.5-10.1); Chloride, Blood 110 mmol/L (98-108); Creatinine, Blood 0.53 mg/dL (0.40-1.00); Glomerular Filtration Rate >60 (60-); Glucose, Blood 104 mg/dL (70-99); Potassium, Blood 3.5 mmol/L (3.5-5.5); Sodium, Blood 138 mmol/L (136-145)
--- NOTE | 2020-03-17 12:03 | NUR ---
LUONG CATHETER CHANGE PT'S LUONG CATHETER HAS BEEN LEAKING. ATTENDS WAS SATURATED THIS MORNING. PT STATED SHE USUALLY HAS A 18F WITH 30ML BALLOON AT HOME. PREVIOUS LUONG THAT WAS LEAKING WAS TAKEN OUT. 18F 30ML BALLOON LUONG CATHETER INSERTED. NO SIGNS OF LEAKING AT THIS TIME.
--- NOTE | 2020-03-17 14:44 | NUR ---
STUDENT DOCUMENTATION REVIEW THIS RN REVIEWED AND AGREES WITH STUDENT NURSEHANK'S PHYSICAL ASSESSMENT AND DOCUMENTATION.
--- NOTE | 2020-03-17 16:12 | NUR ---
DC INSULIN/BLOOD SUGAR. SPOKE WITH DR. ESCOTO ABOUT NEED FOR BLOOD SUGARS AND INSULIN. PT SUGARS HAVE BEEN BELOW 150 AND HAS BEEN TOLERATING A REGULAR DIET. ORDERED TO DC BLOOD SUGARS AND INSULIN.
[2020-03-17 16:29] LABS: Vancomycin, Trough 15.6 ug/mL (5.0-10.0)
--- NOTE | 2020-03-17 18:29 | NUR ---
SHIFT SUMMARY PT LUONG CHANGED DURING SHIFT DUE TO LEAKING. PT'S BLOOD SUGARS STOPPED THIS SHIFT. PT MEDICATED FOR HEADACHE ONCE THIS SHIFT. PT'S VITAL SIGNS STABLE. PT DENIES FURTHER NEEDS AT THIS TIME. WILL CONTINUE TO MONITOR UNTIL TURNOVER IS COMPLETE.
--- NOTE | 2020-03-18 06:13 | NUR ---
44 year old Female with MS had positive blood cultures x 2 when admitted with severe sepsis had strep group f x 2 & kleb oxytoc x 1. UA C & S neg. PT has been bedbound turned Q 2 hours to prevent pressure sores to sacrum & bilat heels. Skin care with barrier cream & bilat le heel protectors. PT has implanted baclofen pump lt abd. Able to feed self & takes fluids well with set up. Wild cath changed yesterday for # 18 tajik with 30 ml bulb & PT had minimal leakage. Finished vanco & zosyn has rocephin. VSS
[2020-03-18] MEDS ORDERED: CEFD300 PO (12:51)
--- NOTE | 2020-03-18 16:35 | NUR ---
DISCHARGE NOTE PT ALERT AND ORIENTED THIS SHIFT. PT BEDBOUND AT BASELINE. PT DISCHARGED TO HOME. PT TRANSFERED BY [facility]. PT TRANSFERED TO WHEELCHAIR FOR TRANPORT VIA LIFT. PT'S MOTHER STATES THEY HAVE A LIFT AT HOME TO TRANSFER HER. IV REMOVED PRIOR TO DISCHARGE. PT EDUCATION AND DISCHARGE INFORMATION PROVIDED, NO QUESTIONS AT THIS TIME.
== END 2020-03-18 16:27 | disposition home or self-care (01) | DRG 698 ==
LOC: ER 08:13 → MEDS 13:41
PROVIDERS: Emergency Medicine; Internal Medicine; Pharmacist; ADMIT Internal Medicine
DX: T83.511A Infection and inflammatory reaction due to indwelling urethral catheter, initial encounter (principal); R65.20 Severe sepsis without septic shock; A40.9 Streptococcal sepsis, unspecified; N39.0 Urinary tract infection, site not specified; B96.1 Klebsiella pneumoniae [K. pneumoniae] as the cause of diseases classified elsewhere; G35 Multiple sclerosis; E87.6 Hypokalemia; K21.9 Gastro-esophageal reflux disease without esophagitis; E11.9 Type 2 diabetes mellitus without complications; Z86.718 Personal history of other venous thrombosis and embolism; Z87.891 Personal history of nicotine dependence
CPT/HCPCS: 36415; 51702; 71045; 80048; 80053; 80202; 81001; 82947; 83036; 83605; 85025; 85027; 87040; 87076; 87077; 87086; 87147; 87184; 87186; 96361-59; 96365-59; 96366-59; 96367-59; 96375-59; 99285-25; A9270; A9270-GY; J0696; J2060; J2543; J3370; J3480; J7030; J7050

== ENCOUNTER 2020-04-21 09:57 | Inpatient (IN) | payer OTHER ==
[~2020-04-21] VITALS: Ht 162.6 cm; Wt 87.0 kg
[~2020-04-21 09:57] MED LIST changes: +AZO BLADDER CO300 MG PO; +BACL20 PO; +BREO ELLIPTA 11 EAC1 INH; +CEFD300 PO; +DOC250 PO; +Neurontin600 MG PO; +OMEPRAZOLE MAGN20 MG PO; +TRAZ50 PO; +Toviaz8 MG PO; +Ventolin/Prove6.7 GM INH; +XARELTO20 MG PO; +[UNRECOGNIZED DRUG - OTHER] TOP
[2020-04-21 11:23] LABS: BASOPHILS PERCENT AUTO 1 % (0-2); EOSINOPHILS ABSOLUTE AUTO 0.46 K/mm3 (0.00-0.68); EOSINOPHILS PERCENT AUTO 5 % (0-6); Hematocrit 39.5 % (33.0-51.0); Hemoglobin 11.9 g/dL (11.5-16.0); IMMATURE GRAN ABSOLUTE AUTO 0.07 K/mm3 (0.00-0.10); IMMATURE GRAN PERCENT AUTO 1 % (0-1); LYMPHOCYTES ABSOLUTE AUTO 2.68 K/mm3 (0.84-5.20); LYMPHOCYTES PERCENT AUTO 31 % (21-46); MONOCYTES ABSOLUTE AUTO 0.46 K/mm3 (0.16-1.47); MONOCYTES PERCENT AUTO 5 % (4-13); Mean Corpuscular HGB 27.6 pg (26.0-34.0); Mean Corpuscular HGB Conc 30.1 g/dL (31.5-36.5); Mean Corpuscular Volume 92 fL (80-100); Mean Platelet Volume 8.8 fL (9.1-12.4); NEUTROPHILS ABSOLUTE AUTO 4.97 K/mm3 (1.96-9.15); NEUTROPHILS PERCENT AUTO 57 % (41-73); Platelet Count 331 K/mm3 (150-400); RDW Coefficient Variation 17.2 % (11.7-14.2); Red Blood Cell Count 4.31 M/mm3 (3.80-5.20); White Blood Cell Count 8.74 K/mm3 (4.00-11.30)
[2020-04-21 11:42] LABS: International Normalized Ratio 0.97; Prothrombin Time Results 10.4 Sec (9.7-11.5)
[2020-04-21 11:45] LABS: Anion Gap 4 mmol/L (6-16); Blood Urea Nitrogen 8 mg/dL (8-24); Bun/Creatinine Ratio 13.7 (12.0-20.0); CO2, Blood 26 mmol/L (21-32); Calcium, Blood 9.6 mg/dL (8.5-10.1); Chloride, Blood 108 mmol/L (98-108); Creatinine, Blood 0.58 mg/dL (0.40-1.00); Glomerular Filtration Rate >60 (60-); Glucose, Blood 100 mg/dL (70-99); Potassium, Blood 3.9 mmol/L (3.5-5.5); Sodium, Blood 138 mmol/L (136-145)
--- NOTE | 2020-04-21 15:36 | NUR ---
PT TACHY ON THE MONITOR. EKG DONE, SHOWS SVT. DR MARI AND DR CALLE NOTIFIED, WILL COME TO BEDSIDE.
--- NOTE | 2020-04-21 16:40 | NUR ---
PT TO PCU VIA BED. ON ZOLL MONITOR FOR TRANSPORT. UPON ARRIVAL TO PCU, BP IN THE 70'S/40'S. DR MARI IMMEDIATELY CALLED, CAME TO PATIENT ROOM.
--- NOTE | 2020-04-21 17:00 | NUR ---
TWO SYNCHRONIZED SHOCKS HAVE BEEN DELIVERED PER DR MARI'S ORDERS, WITHOUT RETURN TO SINUS RHYTHM. REMAINS TACHY IN THE 150'S AND 160'S. DR MARI GAVE ORDERS FOR 150MG AMIODARONE IV PUSH, GIVEN WITH DR MARI STILL AT THE BEDSIDE. PT WILL BE TRANSFERED TO ICU. PAUL JUAREZ RN, WAS ALSO GIVEN REPORT PRIOR TO PT TRANSFER TO ICU.
--- NOTE | 2020-04-21 17:00 | NUR ---
DR CALLE AND DR MARI AT BEDSIDE, ABD ULTRASOUND IN PROGRESS. PT TO BE ADMITTED TO PCU 6. WILL TRANSPORT PT WHEN US DONE.
[2020-04-21 17:19] LABS: PCO2 Arterial 30.2 mmHg (35-45); PO2 Arterial 137 mmHg (80-100)
--- NOTE | 2020-04-21 18:03 | NUR ---
PATIENT TO ROOM FROM [facility] WITH AURA; BEDSIDE REPORT. PT HR 140-160; BP 74/54; ELSIE STARTED TO BOLUS FLUIDS FROM [facility] AND NOTIFIED DR MARI; CARINE TO ROOM; DR MARI TO ROOM; CARDIOVERSION; SHOCK AT 1642 AT 150 JOULES AND SHOCK AT 1643 AT 200 JOULES. AMIODARONE 150 MG AT 1644 IV PUSH; AMIODARONE DRIP STARTED AT 1655. PT HEART CONTINUES TO 140-160'S. BP LABILE; ORDERS FOR TRANSFER TO ICU. PT TRANSFERED TO ICU9 AT 1720. BEDSIDE REPORT GIVEN TO HEATH FERRARI. RESPONDING TO VERBAL AND TACTILE STIMLUI; OPENING EYES AND ANSWERING QUESTIONS AND QUICKLY FALLING BACK ASLEEP. PER REPORT PT CAME IN FOR SUPRAPUBIC CATHETER PLACEMENT, WHICH WAS UNSUCCESSFUL; RED DRAINAGE NOTED IN URINARY LUONG CATHETER APPROX 300CC IN BAG. PT BLE MOTTLED. FEBRILE. BUE CONTRACTED. WHEELCHAIR BOUND AT BASELINE. DR PERALTA CONSULTED [facility] PATIENT.
[2020-04-21 18:25] LABS: BASOPHILS ABSOLUTE AUTO 0.05 K/mm3 (0.00-0.23); BASOPHILS PERCENT AUTO 1 % (0-2); EOSINOPHILS ABSOLUTE AUTO 0.04 K/mm3 (0.00-0.68); EOSINOPHILS PERCENT AUTO 0 % (0-6); Hematocrit 38.6 % (33.0-51.0); Hemoglobin 11.6 g/dL (11.5-16.0); Mean Corpuscular HGB 27.9 pg (26.0-34.0); Mean Corpuscular HGB Conc 30.1 g/dL (31.5-36.5); Mean Corpuscular Volume 93 fL (80-100); Mean Platelet Volume 8.6 fL (9.1-12.4); Platelet Count 300 K/mm3 (150-400); RDW Coefficient Variation 17.2 % (11.7-14.2); RDW Standard Deviation 59.1 fL (35.1-46.3); Red Blood Cell Count 4.16 M/mm3 (3.80-5.20); White Blood Cell Count 10.02 K/mm3 (4.00-11.30)
[2020-04-21 18:27] LABS: IMMATURE GRAN ABSOLUTE AUTO 0.15 K/mm3 (0.00-0.10); IMMATURE GRAN PERCENT AUTO 2 % (0-1); LYMPHOCYTES ABSOLUTE AUTO 0.51 K/mm3 (0.84-5.20); LYMPHOCYTES PERCENT AUTO 5 % (21-46); MONOCYTES ABSOLUTE AUTO 0.05 K/mm3 (0.16-1.47); MONOCYTES PERCENT AUTO 1 % (4-13); NEUTROPHILS ABSOLUTE AUTO 9.22 K/mm3 (1.96-9.15); NEUTROPHILS PERCENT AUTO 92 % (41-73)
[2020-04-21 18:42] LABS: Anion Gap 11 mmol/L (6-16); BAND PERCENT MAN 18 % (0-8); BASOPHILS PERCENT MAN 0 % (0-2); Blood Urea Nitrogen 11 mg/dL (8-24); Bun/Creatinine Ratio 11.3 (12.0-20.0); CO2, Blood 17 mmol/L (21-32); Calcium, Blood 8.1 mg/dL (8.5-10.1); Chloride, Blood 112 mmol/L (98-108); Creatinine, Blood 0.97 mg/dL (0.40-1.00); EOSINOPHILS PERCENT MAN 0 % (0-6); Glomerular Filtration Rate >60 (60-); Glucose, Blood 140 mg/dL (70-99); International Normalized Ratio 1.05; LYMPHOCYTES PERCENT MAN 4 % (21-46); METAMYELOCYTE PERCENT MAN 1 % (0-0); MONOCYTES PERCENT MAN 1 % (4-13); NEUTROPHILS ABSOLUTE MAN 9.41 K/mm3 (1.96-9.15); Potassium, Blood 4.1 mmol/L (3.5-5.5); Prothrombin Time Results 11.2 Sec (9.7-11.5); SEG NEUTROPHILS PERCENT MAN 76 % (41-73); Sodium, Blood 140 mmol/L (136-145); TOTAL CELLS COUNTED 100
--- NOTE | 2020-04-21 19:00 | NUR ---
ASSUMED CARE ASSUMED CARE OF PATIENT. LETHARGIC, BUT ROUSES TO STIMULI. ORIENTED TO SELF, FAMILY, AND PLACE. FOLLOWS SIMPLE COMMANDS. SLOW VERBAL RESPONSE NOTED- ANSWERS QUESTIONS APPROPRIATELY. MOVES ALL EXTREMITIES WEAKLY. SLIGHT CONTRACTURES NOTED IN EXTREMITIES, BUT PT IS ABLE TO STRETCH THEM OUT. MONITOR SHOWS ST, RATE 120s. BP STABLE. AMIODARONE INFUSING @ 1MG/MIN PER ORDER. NS IV BOLUS #2 IS ALMOST COMPLETE. TEMP 101.8F VIA LUONG TEMP PROBE. LUONG DRAINING BLOODY URINE- NO CLOTS NOTED AT THIS TIME. SEAN PICC NOTED. SEE ADMIT ASSESSMENT FOR FULL ASSESSMENT.
--- NOTE | 2020-04-21 19:00 | NUR ---
Patient arrived to ICU about 1700 and was a 4 person slide transfer. she was alert to verbal stimuli and minimal verbal response. She had Villanueva catheter from home that when back from procedure had monika red blood i. We turned her and she had very large light brown soft stool and blood leaking around villanueva catheter. After cleaning her up pull villanueva and placed new Temp 16Fr villanueva and continued to have monika blood and flushed catheter and will send sample later when flush is all out. Took pictures of skin breakdown on buttocks. She had 18ga RAC infusing Amiodarone at 1mg/hr and Dr Reid had us start NS bolus. Placed PICC line in SEAN and allyn labs and cultures and then lab came back and allyn 2nd set of labs from RAC IV. Started 2 bolus after PICC placement. gave report to Beverly MANCILLA. Lab called and critical lactic at 5.4.
[2020-04-21 20:47] LABS: Source, Urine Catheter
[2020-04-21 20:50] LABS: Bilirubin, Urine Neg (Neg); Blood, Urine 5+ (Neg); Glucose Qualitative, Urine Neg (Neg); Ketones, Urine 1+ (Neg); Leukocyte Esterase, Urine 1+ (Neg); Nitrite, Urine Neg (Neg); Protein, Urine 3+ (Neg); Urobilinogen, Urine NORM (Normal)
[2020-04-21 20:56] LABS: Appearance, Urine Turbid (Clear); Color, Urine Red (P-Yellow)
[2020-04-21 20:57] LABS: Red Blood Cells, Urine TNTC /hpf (0-2)
[2020-04-21 20:58] LABS: Bacteria Many /hpf; Squamous Epithelial Cells Few /hpf (Few)
[2020-04-21 22:41] LABS: Hematocrit 39.2 % (33.0-51.0)
[2020-04-22 04:14] LABS: BASOPHILS PERCENT AUTO 0 % (0-2); Hematocrit 35.9 % (33.0-51.0); Hemoglobin 11.2 g/dL (11.5-16.0); LYMPHOCYTES ABSOLUTE AUTO 0.28 K/mm3 (0.84-5.20); LYMPHOCYTES PERCENT AUTO 1 % (21-46); MONOCYTES ABSOLUTE AUTO 0.83 K/mm3 (0.16-1.47); MONOCYTES PERCENT AUTO 3 % (4-13); Mean Corpuscular HGB 28.6 pg (26.0-34.0); Mean Corpuscular HGB Conc 31.2 g/dL (31.5-36.5); Mean Corpuscular Volume 92 fL (80-100); Mean Platelet Volume 9.2 fL (9.1-12.4); Platelet Count 279 K/mm3 (150-400); RDW Coefficient Variation 17.5 % (11.7-14.2); RDW Standard Deviation 58.6 fL (35.1-46.3); Red Blood Cell Count 3.92 M/mm3 (3.80-5.20); White Blood Cell Count 29.78 K/mm3 (4.00-11.30)
[2020-04-22 04:19] LABS: EOSINOPHILS PERCENT AUTO 0 % (0-6); IMMATURE GRAN ABSOLUTE AUTO 0.62 K/mm3 (0.00-0.10); IMMATURE GRAN PERCENT AUTO 2 % (0-1); NEUTROPHILS ABSOLUTE AUTO 27.95 K/mm3 (1.96-9.15); NEUTROPHILS PERCENT AUTO 94 % (41-73)
[2020-04-22 04:34] LABS: Albumin, Blood 2.4 g/dL (3.4-5.0); Albumin/Globulin Ratio 0.6 (0.8-1.8); Bilirubin, Total 0.7 mg/dL (0.1-1.0); Bun/Creatinine Ratio 12.1 (12.0-20.0); Calcium, Blood 8.2 mg/dL (8.5-10.1); Creatinine, Blood 1.07 mg/dL (0.40-1.00); Globulin, Blood 4.1 g/dL (2.2-4.0); Potassium, Blood 3.8 mmol/L (3.5-5.5); Total Protein, Blood 6.5 g/dL (6.4-8.2)
--- NOTE | 2020-04-22 05:05 | NUR ---
O2/COUGH PT WITH FREQUENT WEAK MOIST COUGH. SX SMALL AMOUNT OF THICK WHITE SPUTUM. LUNGS COARSE T/O WITH FAINT EXP WHEEZE IN CATERINA. O2 AT 2L AT 0445 AND THEN UP TO 4L AT THIS TIME. RT AT BEDSIDE AND PRN INHALER GIVEN.
[2020-04-22 05:38] LABS: BAND PERCENT MAN 23 % (0-8); BASOPHILS PERCENT MAN 0 % (0-2); EOSINOPHILS PERCENT MAN 0 % (0-6); LYMPHOCYTES ABSOLUTE MAN 0.29 K/mm3 (0.84-5.20); LYMPHOCYTES PERCENT MAN 1 % (21-46); METAMYELOCYTE ABSOLUTE MAN 1.19 K/mm3 (0.00-0.00); METAMYELOCYTE PERCENT MAN 4 % (0-0); MONOCYTES ABSOLUTE MAN 0.59 K/mm3 (0.16-1.47); MONOCYTES PERCENT MAN 2 % (4-13); NEUTROPHILS ABSOLUTE MAN 27.69 K/mm3 (1.96-9.15); SEG NEUTROPHILS PERCENT MAN 70 % (41-73); TOTAL CELLS COUNTED 100
--- NOTE | 2020-04-22 06:31 | NUR ---
SHIFT SUMMARY NO ACUTE CHANGES. REMAINS LETHARGIC. ROUSES TO STIMULI. SLOW VERBAL RESPONSE AND SPEECH IS MUMBLED. ORIENTED TO SELF ONLY THIS AM. STATES THAT SHE IS AT HOME WHEN ASKED IF SHE KNOWS WHERE SHE IS. FOLLOWS SIMPLE COMMANDS. NPO T/O NOC D/T LETHARGY. MOVES ALL EXTREMITIES WEAKLY. HR 110-120s. BP STABLE. AMIODARONE INFUSING AT 0.5MG/MIN PER ORDER. NS INFUSING @ 125CC/HR PER ORDER. O2 AT 4LNC AT BEGINNING OF SHIFT AND THEN WAS ABLE TO BE TITRATED OFF. BACK ON AT 4LNC THIS AM TO MAINTAIN SATS >90%. RESPIRATIONS SHALLOW, BUT UNLABORED. WEAK MOIST COUGH. HEMATURIA CONTINUES- LUONG CATHETER FLUSHED X 3 DURING SHIFT. OCCASIONAL CLOTS NOTED. ALSO NOTED A SMALL AMOUNT OF URINE/BLOOK LEAKING AROUND CATHETER, BUT APPEARS LESS THIS AM. REPOSITIONED Q2H TO KEEP PT OFF OF BACKSIDE. WILL REPORT TO ONCOMING RN WHEN AVAILABLE.
--- NOTE | 2020-04-22 07:13 | NUR ---
Received report from Beverly MANCILLA. Patient laying to left side with HOB at 15 degrees. Patient was on 4L O2 vis NC for apnea while sleeping. She is confused and speech mumbles and is difficult to understand. HURTADO but very weak. She has temp villanueva 100.3 and has overton red ouput. She has 18ga RAC dressing intact and site WNL's and is flushed and SL's. She also has PICC line SEAN dressing intact and site WNL's and is infusing Amiodarone at 0.5mg/hr, NS 125ml/hr. Dr Gamble stated to have her transferred over to PO Amiodarone later today. She has skin breakdown to coccyx and buttocks area see pics. VSS, See EMR.
--- NOTE | 2020-04-22 09:32 | NUR ---
Dr Murphy by to see patient. She awoke and is a little clearer now. She was able to take am meds well with apple sauce. VSS, still ST 100-120's, urine still overton red. No new orders.
--- NOTE | 2020-04-22 13:47 | NUR ---
Patient has been resting in bed. She is currently sitting up watching TV. Partial bath and when rolling sid to change linen , she had very large BM light brown in color. She staill has small amount of blood tinged liquid leaking aroun fole. Wild continues to have overton red output, flushed several times to ensure flow. She is a little clear and able to communicate her needs. Changed linen and her gown. She has low grade temp. 100.2
--- NOTE | 2020-04-22 17:21 | NUR ---
Patient continues to leak around catheter and saturate the stay dry with red tinged liquid. She continues to have smears of stools. She remains in ST with rate 110-120's.VSS, See EMR. She has overton red urine in adequate amounts. She is alert and oriented and is able to comunnicate her needs. She is on RA and sats >90%'s. She has pink foam bilateral heel protectors in place all shift. She continues to have NS at 125 ml/hr, and Amiodarone has been turned off and has been changed to PO BID.
--- NOTE | 2020-04-22 19:00 | NUR ---
ASSUMED CARE NOTE: ASSUMED CARE OF PT AT 1900, RECEVIED REPORT FROM, HEATH MANCILLA. PT IS A/OX3, IS ABLE TO COMMUNICATE NEEDS. PT IS ON RA WITH SPO2 ABOVE 90%, NO RESPRIATORY DISTRESS NOTED AT THIS TIME. PT HAS BEEN HAVING A PRODUCTIVE COUGH, PINK SPUTUM NOTED. PT USES HAND-HELD YANKAUER AT BEDSIDE. PT IS IN SINUS TACH WITH HR IN THE 120S TO 130'S . PT DENIES ANY CP AT THIS TIME. BP STABLE, TEMP AT 100.1, BLANKETS REMOVED, AND FAN IN PLACE. PT ALSO DRINKING ORAL FLUIDS. ACIVE BOWEL TONES HEARD IN ALL FOUR QUADRANTS. NS RUNNING AT 125ML/HR THROUGH PICC LINE. BED AT LOWEST LEVEL, CALL LIGHT WITHIN REACH.
[2020-04-22 23:33] LABS: Vancomycin, Trough 26.9 ug/mL (5.0-10.0)
--- NOTE | 2020-04-23 03:10 | NUR ---
UPDATE: PT RESTING. ACETAMINOPHEN GIVEN EARLIER, NO EFFECT TO TEMP. BP STABLE. LUONG LEAKING, CATH CARE PROVIDED. CATH FLUSHED WITH 20CC, SMALL CLOTS NOTED. TEMP LUONG DRAINING WELL TO GRAVITY AT THIS TIME. TEMP IS 100.0 AT THIS TIME.
[2020-04-23 04:32] LABS: Hematocrit 30.5 % (33.0-51.0); Hemoglobin 9.5 g/dL (11.5-16.0); Mean Corpuscular HGB 28.2 pg (26.0-34.0); Mean Corpuscular HGB Conc 31.1 g/dL (31.5-36.5); Mean Corpuscular Volume 91 fL (80-100); Mean Platelet Volume 9.3 fL (9.1-12.4); Platelet Count 192 K/mm3 (150-400); RDW Coefficient Variation 17.6 % (11.7-14.2); RDW Standard Deviation 58.4 fL (35.1-46.3); Red Blood Cell Count 3.37 M/mm3 (3.80-5.20); White Blood Cell Count 20.69 K/mm3 (4.00-11.30)
[2020-04-23 04:48] LABS: Vancomycin, Random 18.7 ug/mL
[2020-04-23 05:28] LABS: BAND PERCENT MAN 18 % (0-8); BASOPHILS PERCENT MAN 1 % (0-2); EOSINOPHILS PERCENT MAN 0 % (0-6); LYMPHOCYTES ABSOLUTE MAN 1.24 K/mm3 (0.84-5.20); LYMPHOCYTES PERCENT MAN 6 % (21-46); MONOCYTES ABSOLUTE MAN 0.62 K/mm3 (0.16-1.47); MONOCYTES PERCENT MAN 3 % (4-13); NEUTROPHILS ABSOLUTE MAN 18.62 K/mm3 (1.96-9.15); SEG NEUTROPHILS PERCENT MAN 72 % (41-73); TOTAL CELLS COUNTED 100
--- NOTE | 2020-04-23 06:19 | NUR ---
SHIFT SUMMARY: SEE PREVIOUS NOTES. NO MAJOR CHANGES T/O SHIFT. PT CONTINUES TO BE AOX3. PT ON 2L OF VIA NC WITH SPO2 AT 94% PT DENIES SOB AT THIS TIME. PT C/O HEARTBURN T/O TWICE THIS SHIFT, TUMS GIVEN PERSCIBED. PT POINTED AT EPIGASTRIC AREA, DENIES PAIN TO UPPER CHEST OR SHOULDERS. PT STATES THAT SITTING UP HIGH MAKES THE PAIN GO AWAY. PT IN SIT WITH HR IN THE 120'S. LUONG PATNET AND DRAINING BURGANDY COLOR URINE. BED AT LOWEST LEVEL, CALL LIGHT WITHIN REACH
--- NOTE | 2020-04-23 07:30 | NUR ---
REC'D BEDSIDE REPORT FROM CHARO DILLON AND AM NOW ASSUMING CARE OF THIS PT.
--- NOTE | 2020-04-23 08:33 | NUR ---
PT NAUSEOUS: PT REPORTS GASTRIC REFLUX WITH SCANT AMTS OF BILE EMESIS. GAVE PT A TUMS, WHICH WORSENED SYMPTOMS. TX'ING WITH ZOFRAN PER ORDERS.
--- NOTE | 2020-04-23 09:00 | NUR ---
DR POE IN TO ASSESS PT. SEE NEW ORDERS.
--- NOTE | 2020-04-23 11:39 | NUR ---
CONTINUOUS BLADDER IRRIGATION STARTED. SEVERAL ATTEMPTS MADE BEFORE A LARGER (22F) 3 WAY BLADDER IRRIGATION CATHETER WAS ABLE TO BE PLACED BY CHARO SCOTT. BLADDER IRRIGATION STARTED AND PT'S URINE QUICKLY CLEARED FROM THICK BLOODY OUTPUT TO OUTPUT WITH MINIMAL CLOTS, WILL CONTINUE AT A SLOWER RATE OF IRRIGATION AT THIS POINT.
--- NOTE | 2020-04-23 13:05 | NUR ---
DR CALLE AT THE BEDSIDE TO ASSESS PT. UPDATED WITH PT'S STATUS. NO NEW ORDERS AT THIS TIME.
[2020-04-23 13:39] LABS: Hematocrit 33.5 % (33.0-51.0); Hemoglobin 10.2 g/dL (11.5-16.0)
[2020-04-23 13:56] LABS: Source, Urine Catheter
[2020-04-23 14:01] LABS: Bilirubin, Urine Neg (Neg); Blood, Urine 5+ (Neg); Glucose Qualitative, Urine Neg (Neg); Ketones, Urine Neg (Neg); Leukocyte Esterase, Urine 3+ (Neg); Nitrite, Urine Neg (Neg); Protein, Urine 2+ (Neg); Urobilinogen, Urine NORM (Normal)
[2020-04-23 14:06] LABS: Appearance, Urine Bloody (Clear); Color, Urine Red (P-Yellow)
[2020-04-23 14:08] LABS: Red Blood Cells, Urine TNTC /hpf (0-2); Squamous Epithelial Cells Few /hpf (Few)
[2020-04-23 14:09] LABS: Bacteria Few /hpf
--- NOTE | 2020-04-23 16:38 | NUR ---
PT UPDATE: PT PROVIDED WITH GEETHA JUSTINO PER ORDERS AND ALSO GIVEN GI COCKTAIL FOR CONT C/O OF NAUSEA WITH SM AMTS OF FREQUENT BILE EMESIS, WHICH PT SELF SX'S. PT REPORTS THAT GEETHA JUSTINO/GI COCKTAIN HELPED IN REDUCING NAUSEA.
--- NOTE | 2020-04-23 19:00 | NUR ---
SHIFT SUMMARY: PT MOSTLY UNCHANGED T/O SHIFT. REPLACED 16F LUONG WITH 3 WAY 22F AND STARTED ON CONTINUOUS BLADDER IRRIGATION TODAY. URINE WENT FROM SLUDGEY/BLOOD TO LIGHT PINK AND MOSTLY CLEAR WITH MINIMAL SMALL CLOTS NOTED. PT IS ALERT AND ORIENTED AND CAN MAKE NEEDS WELL KNOWN. CALL LIGHT WITHING REACH. PT ABLE TO ANSWER QUESTIONS SLOWLY BUT APPROPRIATELY. SPEECH IS MUMBLED AND DIFFICULT TO UNDERSTAND AT TIMES. LUNGS ARE CLEAR BUT DIMINISHED IN THE BILATERAL BASES. SP02 >90% ON 3L 02 VIA N/C. HR REGULAR, ST 100-110'S, SEVERAL SHORT SELF RESOLVING EPISODES OF 120'S RANGE. NS INFUSING AT 125ML/HR THROUGH PICC IN LT UA. ABD DISTENDED/TENDER IN THE RT UPPER QUAD, WITH HYPOACTIVE BT'S. PT C/O GASTRIC REFLUX WITH SM AMTS OF EMESIS T/O THE SHIFT THAT PT SELF SX'D WITH YAUNKER. PT WITH POOR APPETITE T/O SHIFT ON CL DIET TODAY R/T ABOVE. PT WITH PRESSURE ULCERS RT/LT BUTTOCKS WITH MEPILEX IN PLACE TO RT AND LT BUTTOCKS AND COCCYX. -MEDICAL WITH TELEMETRY STATUS, TNX WHEN BED AVAILABLE
--- NOTE | 2020-04-23 19:41 | NUR ---
REPORTED OFF TO CHARO WALKER WHOM IS ASSUMING CARE OF THIS PT.
--- NOTE | 2020-04-24 00:10 | NUR ---
ASSUMED PT CARE AT 1930 FROM CHARO DE LA GARZA PT IS RESTING IN BED. ALERT AND ORIENTED AND ABLE TO MAKE NEEDS KNOWN. CONTINUOUS LUONG CATHETER IRRIGATION IN PLACE WITH URINE THAT APPEARS TO BE CLEARING OF CLOTS, BUT STILL HAS PINK/RED TINGE TO IT. PT NOTED TO HAVE BASELINE TREMOR; HOWEVER, SHE HAS A HX OF MS. PT ABLE TO SUCTION OWN SECRETIONS. PER REPORT SHE C/O ACID REFLUX T/O SHIFT AND WITH EVERY BURP SHE PRODUCED MINIMAL AMOUNTS OF GASTRIC CONTENTS. NO C/O ACID REFLUX THIS SHIFT. PT HAS BEEN REPOSITIONED AND TURNED FOR COMFORT. ABLE TO DEMONSTRATE ADEQUATE USE OF CALL LIGHT, WHICH IS WITHIN REACH.
[2020-04-24 04:39] LABS: Hematocrit 29.2 % (33.0-51.0); Hemoglobin 9.1 g/dL (11.5-16.0); Mean Corpuscular HGB 28.3 pg (26.0-34.0); Mean Corpuscular HGB Conc 31.2 g/dL (31.5-36.5); Mean Corpuscular Volume 91 fL (80-100); Mean Platelet Volume 9.6 fL (9.1-12.4); Platelet Count 206 K/mm3 (150-400); RDW Coefficient Variation 17.5 % (11.7-14.2); RDW Standard Deviation 57.5 fL (35.1-46.3); Red Blood Cell Count 3.21 M/mm3 (3.80-5.20); White Blood Cell Count 18.32 K/mm3 (4.00-11.30)
[2020-04-24 04:51] LABS: Anion Gap 4 mmol/L (6-16); Blood Urea Nitrogen 12 mg/dL (8-24); Bun/Creatinine Ratio 17.8 (12.0-20.0); CO2, Blood 25 mmol/L (21-32); Calcium, Blood 8.4 mg/dL (8.5-10.1); Chloride, Blood 114 mmol/L (98-108); Creatinine, Blood 0.67 mg/dL (0.40-1.00); Glomerular Filtration Rate >60 (60-); Glucose, Blood 112 mg/dL (70-99); Potassium, Blood 3.2 mmol/L (3.5-5.5); Sodium, Blood 143 mmol/L (136-145)
[2020-04-24 05:07] LABS: Vancomycin, Trough 12.7 ug/mL (5.0-10.0)
--- NOTE | 2020-04-24 05:43 | NUR ---
END OF SHIFT SUMMARY PT HASN'T SLEPT AT ALL THIS SHIFT. STARTED TO BECOME MORE CONFUSED WITH VISUAL AND AUDITORY HALLUCINATIONS. MAKING STATEMENTS SUCH ASKING WHOSE BOYFRIEND IS THAT OUTSIDE HER ROOM RIDING A BIKE, AND THAT SHE THINKS HIS NAME MAY BE IRMA. REPEATEDLY ASKED ME TO APOLOGIZE TO THE GIRL THAT SHE SAID MEAN STUFF TO. THEREFORE, SPOKE WITH DR. OH IN REGARDS TO PT'S LACK OF SLEEP. SHE RECEIVED 75MG OF TRAZODONE PER ORDERS, WHICH WAS UNEFFECTIVE. NEW ORDERS FOR 0.5MG OF ATIVAN IV NOW. PT REMAINS AWAKE, BUT VERY DROWSY. FREQUENT LINEN CHANGES REQUIRED D/T LUONG CATHETER LEAKING. MOISTURE ASSOCIATED SKIN DAMAGE AREAS HAVE BEEN LEFT OPEN TO AIR, CLEANSED WITH EACH LINEN CHANGE, AND POWDER APPLIED TO HELP KEEP DRY. CONTINUOUS LUONG CATHETER IRRIGATION CONTINUES WITH PINK/BLOOD TINGED URINE AND A FEW CLOTS NOTED AT LAST EMPTYING OF CATHETER. REFER TO I/O FLOWSHEET TO SEE OUTPUT FROM CATHETER THIS SHIFT. CALL LIGHT WITHIN REACH; PT ABLE TO MAKE NEEDS KNOWN.
[2020-04-24 06:06] LABS: BAND PERCENT MAN 8 % (0-8); BASOPHILS ABSOLUTE MAN 0.18 K/mm3 (0.00-0.23); BASOPHILS PERCENT MAN 1 % (0-2); EOSINOPHILS PERCENT MAN 0 % (0-6); LYMPHOCYTES % ATYPICAL MANUAL 1 % (0-0); LYMPHOCYTES ABSOLUTE MAN 1.09 K/mm3 (0.84-5.20); LYMPHOCYTES PERCENT MAN 5 % (21-46); MONOCYTES ABSOLUTE MAN 0.54 K/mm3 (0.16-1.47); MONOCYTES PERCENT MAN 3 % (4-13); NEUTROPHILS ABSOLUTE MAN 16.48 K/mm3 (1.96-9.15); SEG NEUTROPHILS PERCENT MAN 82 % (41-73); TOTAL CELLS COUNTED 100
--- NOTE | 2020-04-24 07:48 | NUR ---
ASSUMED CARE: PT RESTING IN BED, ASKING IF SHE CAN GET OUT OF ROOM. APPEARS DISORIENTED. BLADDER IRRIGATION IN PLACE, PINK TINGED URINE NOTED. HR 1TEENS AT THIS TIME. NO FURTHER NEEDS OR CONCERNS. DR MARI ALREADY CAME IN TO SEE PT THIS SHIFT.
--- NOTE | 2020-04-24 14:10 | NUR ---
PICC LINE OUT 12CM WHEN DRESSING CHANGED. DOCUMENTED 10 UPON PLACEMENT. DISCUSSED WITH INTERIOR ASSEMBLIES INSTALLER.
--- NOTE | 2020-04-24 16:11 | NUR ---
PT TRANSFERRED TO ROOM 325 VIA RECLINER BY HOSPITAL STAFF. TRANSFERRED WITH BLADDER IRRIGATION IN PLACE. PT'S MOTHER AT BEDSIDE AND AWARE OF NEW ROOM ASSIGNMENT. REPORT GIVEN TO DASH MANCILLA
--- NOTE | 2020-04-25 04:13 | NUR ---
SHIFT SUMMARY PT CONFUSED THIS EVENING. KEPT THINKING SHE WAS AT HOME. WOULD REORIENT EASILY BUT WOULD QUICKLY REVERT BACK. SLEPT OFF AND ON THROUGHOUT THE NIGHT. CONTINUOUS BLADDER IRRIGATION RUNNING. LUONG CATHETER PATENT AND DRAINING LIGHT PINK URINE. SOME LEAKING AROUND LUONG CATHETER. PT BEDBOUND. LIFT USED TO TRANSFER PT INTO BED FROM CHAIR. PT DENIED ANY PAIN. TELEMETRY IN PLACE, SR 90'S. TACHYCARDIC AT TIMES IN THE LOW 100'S TO 110'S. PT REQUESTED FREQUENT SNACKS BEFORE BED, ATE WELL. VITAL SIGNS STABLE. WILL CONTINUE TO MONITOR AND REPORT TO DAY RN.
[2020-04-25 06:09] LABS: BASOPHILS ABSOLUTE AUTO 0.07 K/mm3 (0.00-0.23); BASOPHILS PERCENT AUTO 1 % (0-2); EOSINOPHILS ABSOLUTE AUTO 0.11 K/mm3 (0.00-0.68); EOSINOPHILS PERCENT AUTO 1 % (0-6); Hemoglobin 8.6 g/dL (11.5-16.0); IMMATURE GRAN PERCENT AUTO 1 % (0-1); LYMPHOCYTES ABSOLUTE AUTO 1.64 K/mm3 (0.84-5.20); LYMPHOCYTES PERCENT AUTO 14 % (21-46); MONOCYTES ABSOLUTE AUTO 0.61 K/mm3 (0.16-1.47); MONOCYTES PERCENT AUTO 5 % (4-13); Mean Corpuscular HGB 27.7 pg (26.0-34.0); Mean Corpuscular HGB Conc 30.7 g/dL (31.5-36.5); Mean Corpuscular Volume 90 fL (80-100); Mean Platelet Volume 9.7 fL (9.1-12.4); NEUTROPHILS ABSOLUTE AUTO 9.44 K/mm3 (1.96-9.15); NEUTROPHILS PERCENT AUTO 79 % (41-73); Platelet Count 204 K/mm3 (150-400); RDW Coefficient Variation 17.4 % (11.7-14.2); RDW Standard Deviation 57.4 fL (35.1-46.3); White Blood Cell Count 11.97 K/mm3 (4.00-11.30)
[2020-04-25 06:24] LABS: Albumin, Blood 2.1 g/dL (3.4-5.0); Anion Gap 8 mmol/L (6-16); Blood Urea Nitrogen 9 mg/dL (8-24); Bun/Creatinine Ratio 12.2 (12.0-20.0); CO2, Blood 23 mmol/L (21-32); Calcium, Blood 8.2 mg/dL (8.5-10.1); Chloride, Blood 112 mmol/L (98-108); Creatinine, Blood 0.74 mg/dL (0.40-1.00); Glomerular Filtration Rate >60 (60-); Glucose, Blood 119 mg/dL (70-99); Magnesium, Blood 1.9 mg/dL (1.6-2.4); Phosphorus, Blood 1.1 mg/dL (2.5-4.9); Potassium, Blood 3.5 mmol/L (3.5-5.5); Sodium, Blood 143 mmol/L (136-145)
--- NOTE | 2020-04-25 11:52 | NUR ---
SPOKE WITH DR. MARIN ABOUT THE PATIENT. HE REQUESTED A BLADDER SCAN AND THE BLADDER SCAN WAS DONE. A VOLUME OF 2ML WAS SEEN IN THE BLADDER THIS MORNING. PATIENT'S CONTINUOUS BLADDER IRRIGATION IS HELD PER DR. MARIN UNTIL IMAGING IS DONE TO SEE IF THE PATIENT HAS A POTENTIALLY PERFORATED BLADDER. I WILL BE RE-EVALUATING IN THE CHART THE PATIENT'S ABDOMINAL AND GI STATUS IN THE EMR. THE PATIENT WHEN I EVALUATED HER WAS LYING DOWN AND DID NOT LOOK DISTENDED. WHEN I SAT THE PATIENT UP THIS MID MORNING SHE LOOKED VERY DISTENDED AND NOTED THAT HER "STOMACH FEELS FUNNY". SHE DENIED NAUSEA OR VOMITING, SHE DENIES HEART BURN BUT STATES IT FEELS FUNNY. AWAITING IMAGING TO NOTE IF THE PATIENT NEEDS MORE FOLLOW UP. AT THIS TIME CONTINUOUS IRRIGATION IS HELD UNTIL IMAGING RESULTS ARE BACK. I HAVE BROUGHT UP THESE CONCERNS WITH DR. MARIN WHO STATED TO HOLD THE CONTINUOUS BLADDER IRRIGATON UNTIL FURTHER NOTICE. SPOKEN THROUGH THIS WITH JU MANCILLA WELL. RECHARTING AT THIS TIME.
--- NOTE | 2020-04-25 12:57 | NUR ---
Patient did not eat breakfast or lunch this shift due not patient stating "she was not hungry and she was full" at this time. I offered to assisst her and she declined. RN Notified.
--- NOTE | 2020-04-25 14:06 | NUR ---
SPOKE WITH DR. MARIN ABOUT THE PATIENT GOING DOWN TO IMAGING AND NOTIFIED HIM ABOUT ASKING FOR THE DANNIE. THE PATIENT IS CURRENTLY MUCH MORE LETHARGIC AND CONFUSED THAN SHE HAD BEEN EARLIER.
--- NOTE | 2020-04-25 17:35 | NUR ---
SHIFT SUMMARY PATIENT IS PLEASANT, ALERT TO SELF ONLY. SHE HAS BEEN TALKING TO HERSELF ALL DAY LONG AND HAVING AUDITORY AND VISUAL HALLUCINATIONS TALKING ABOUT NEEDING TO CHANGE SCHOOLS AND HER CHILDREN CRYING IN THE HALLWAY. I HAVE TRIED TO REORIENT THE PATIENT BUT SHE HAS CONTINUED TO TELL ME THAT THESE THINGS ARE GOING ON. I AM CONCERNED THE PATIENT'S ABDOMEN IS CURRENTLY GETTING MORE DISTENDED AND ROUND. SHE ASKED FOR THE BEDPAN AND HAVE NOT HAD A RESULT YET. I WAS ABLE TO SAFELY GIVE HER THE DINNER TIME MEDICATIONS WITH APPLESAUCE BUT IT TOOK MUCH EXPLAINING AND REORIENTATION. THE PATIENT WAS NOT THIS CONFUSED LAST NIGHT PRIOR TO END OF SHIFT. I WILL HAVE TO CONTINUE TO MONITOR FOR CHANGES. SHE IS BACK ON THE CONTINUOUS BLADDER IRRIGATION, AND MONITORING. FLUIDS WERE CHANGED NS C 20 MEQ KCL. SHE DENIES SHORTNESS OF BREATH OR CHEST PAIN. AWAITING DANNIE WITH CARDIOLOGY.
[2020-04-26 04:24] LABS: BASOPHILS ABSOLUTE AUTO 0.07 K/mm3 (0.00-0.23); BASOPHILS PERCENT AUTO 1 % (0-2); EOSINOPHILS ABSOLUTE AUTO 0.18 K/mm3 (0.00-0.68); EOSINOPHILS PERCENT AUTO 2 % (0-6); Hematocrit 27.8 % (33.0-51.0); Hemoglobin 8.5 g/dL (11.5-16.0); Mean Corpuscular HGB 27.7 pg (26.0-34.0); Mean Corpuscular HGB Conc 30.6 g/dL (31.5-36.5); Mean Corpuscular Volume 91 fL (80-100); Mean Platelet Volume 9.4 fL (9.1-12.4); Platelet Count 201 K/mm3 (150-400); RDW Coefficient Variation 17.4 % (11.7-14.2); RDW Standard Deviation 58.4 fL (35.1-46.3); Red Blood Cell Count 3.07 M/mm3 (3.80-5.20); White Blood Cell Count 9.36 K/mm3 (4.00-11.30)
[2020-04-26 04:28] LABS: IMMATURE GRAN ABSOLUTE AUTO 0.17 K/mm3 (0.00-0.10); IMMATURE GRAN PERCENT AUTO 2 % (0-1); LYMPHOCYTES PERCENT AUTO 25 % (21-46); MONOCYTES ABSOLUTE AUTO 0.73 K/mm3 (0.16-1.47); MONOCYTES PERCENT AUTO 8 % (4-13); NEUTROPHILS ABSOLUTE AUTO 5.91 K/mm3 (1.96-9.15); NEUTROPHILS PERCENT AUTO 63 % (41-73)
--- NOTE | 2020-04-26 04:28 | NUR ---
SHIFT SUMMARY PT CONTINUES TO BE CONFUSED. AT START OF SHIFT PT WAS ABLE TO TELL ME HER NAME AND HER BIRTHDAY, WHERE SHE WAS, THE CURRENT MONTH AND YEAR, AND THE CURRENT PRESIDENT. SHORTLY INTO THE SHIFT THE PT KEPT THINKING THAT SHE WAS AT HOME AGAIN. FREQUENTLY YELLING OUT FOR HER DAUGHTER AMIRAH. PT HAVING VISUAL AND AUDITORY HALLUCINATIONS. LUONG CATHETER REMAINS INTACT WITH CONTINUOUS BLADDER IRRIGATION RUNNING. URINE CONTINUES TO BE PINK TINGED BUT IS CHIEF COMPRESSOR STATION ENGINEER THAN NIGHT BEFORE. TELEMETRY SINUS TACH 105. PT'S MOTHER CALLED AND WAS GIVEN AN UPDATE ON PT. PT SLIGHTLY FEBRILE AT 99.6 AT START OF SHIFT. TYLENOL 650 MG GIVEN WITH GOOD RESULTS. ABD DISTENDED AND FIRM. PT DENIES ANY TENDERNESS WITH PALPATION. PT REMAINED IN BED THROUGHOUT THE NIGHT. REPOSITIONED NEEDED. VITAL SIGNS STABLE. WILL CONTINUE TO MONITOR AND REPORT TO DAY RN.
[2020-04-26 04:42] LABS: Alanine Aminotransfer (ALT/SGP 20 U/L (12-78); Albumin, Blood 2.1 g/dL (3.4-5.0); Albumin/Globulin Ratio 0.5 (0.8-1.8); Alk Phos 84 U/L (50-136); Anion Gap 6 mmol/L (6-16); Aspartate Aminotrans (AST/SGOT 19 U/L (12-37); Bilirubin, Total 0.2 mg/dL (0.1-1.0); Blood Urea Nitrogen 7 mg/dL (8-24); Bun/Creatinine Ratio 9.9 (12.0-20.0); CO2, Blood 23 mmol/L (21-32); Calcium, Blood 8.2 mg/dL (8.5-10.1); Chloride, Blood 113 mmol/L (98-108); Creatinine, Blood 0.71 mg/dL (0.40-1.00); Globulin, Blood 4.5 g/dL (2.2-4.0); Glomerular Filtration Rate >60 (60-); Glucose, Blood 90 mg/dL (70-99); Potassium, Blood 3.6 mmol/L (3.5-5.5); Sodium, Blood 142 mmol/L (136-145); Total Protein, Blood 6.6 g/dL (6.4-8.2)
[2020-04-26 04:51] LABS: Vancomycin, Trough 1.5 ug/mL (5.0-10.0)
--- NOTE | 2020-04-26 15:24 | NUR ---
CALL PLACED TO CALL PLACED TO DISCUSS CLAMPING NG TUBE FOR 60 MIN AFTER MEDICATION AORDER GIVEN VIA TELEPHONE AND ENTERED INTO CHART. WILL CONT TO MONITOR
--- NOTE | 2020-04-26 17:48 | NUR ---
SHIFT SUMMARY PATIENT WAS CONFUSED TODAY. HER MENTATION IMPROVED LATER IN THE DAY. NG TO LOW INTERMITTENT SUCTION PLACED AND PATIENT REPORTS FEELING "MUCH BETTER." ABDOMEN IS LESS DISTENDED. SUCTION REMOVED APPROX 70ML. GI CONSULT CALLED IN TO [facility]. SHE REQUIRES FREQUENT REMINDERS ABOUT WHY THE [place] TUBE IS IN, BUT LEAVES IT ALONE. SHE FOLLOWS COMMANDS WELL. BED LOW AND LCOKED, CALL LIGHT WITHIN REACH AND SHE IS ABLE TO MAKE HER NEEDS KNOWN. WILL CONT TO MONITOR
--- NOTE | 2020-04-27 04:21 | NUR ---
SHIFT SUMMARY PT REMAINS CONFUSED. THINKING SHE IS AT HOME. ABLE TO REORIENT BUT PT SHORTLY AFTER FORGETS AND BELIEVES SHE IS AT HOME AGAIN. PT SLEPT WELL THIS EVENING. LUONG CATHETER IN PLACE. CONTINUOUS BLADDER IRRIGATION RUNNING. URINE LIGHT YELLOW. NG TUBE IN PLACE WITH LOW INTERMITTENT SUCTION. LITTLE TO NOTHING OUT THIS SHIFT WITH NG TUBE. ABD IS LESS DISTENDED. PT SLIGHTLY FEBRILE THIS EVENING WITH TEMPERATURES IN THE LOW 100'S. MEDICATED X 2 WITH TYLENOL 650 MG. OTHERWISE VSS. WILL CONTINUE TO MONITOR AND REPORT TO DAY RN.
[2020-04-27 05:48] LABS: BASOPHILS ABSOLUTE AUTO 0.07 K/mm3 (0.00-0.23); BASOPHILS PERCENT AUTO 1 % (0-2); EOSINOPHILS ABSOLUTE AUTO 0.27 K/mm3 (0.00-0.68); EOSINOPHILS PERCENT AUTO 3 % (0-6); Hematocrit 28.4 % (33.0-51.0); Hemoglobin 8.9 g/dL (11.5-16.0); Mean Corpuscular HGB 27.8 pg (26.0-34.0); Mean Corpuscular HGB Conc 31.3 g/dL (31.5-36.5); Mean Corpuscular Volume 89 fL (80-100); Mean Platelet Volume 9.5 fL (9.1-12.4); Platelet Count 262 K/mm3 (150-400); RDW Coefficient Variation 17.5 % (11.7-14.2); RDW Standard Deviation 56.3 fL (35.1-46.3); White Blood Cell Count 10.92 K/mm3 (4.00-11.30)
[2020-04-27 05:57] LABS: IMMATURE GRAN ABSOLUTE AUTO 0.38 K/mm3 (0.00-0.10); IMMATURE GRAN PERCENT AUTO 4 % (0-1); LYMPHOCYTES ABSOLUTE AUTO 3.13 K/mm3 (0.84-5.20); LYMPHOCYTES PERCENT AUTO 29 % (21-46); MONOCYTES PERCENT AUTO 6 % (4-13); NEUTROPHILS ABSOLUTE AUTO 6.37 K/mm3 (1.96-9.15); NEUTROPHILS PERCENT AUTO 58 % (41-73)
[2020-04-27 06:03] LABS: Albumin, Blood 2.2 g/dL (3.4-5.0); Anion Gap 7 mmol/L (6-16); Blood Urea Nitrogen 5 mg/dL (8-24); Bun/Creatinine Ratio 7.7 (12.0-20.0); CO2, Blood 23 mmol/L (21-32); Chloride, Blood 112 mmol/L (98-108); Creatinine, Blood 0.65 mg/dL (0.40-1.00); Glomerular Filtration Rate >60 (60-); Glucose, Blood 85 mg/dL (70-99); Magnesium, Blood 2.1 mg/dL (1.6-2.4); Phosphorus, Blood 2.9 mg/dL (2.5-4.9); Potassium, Blood 3.6 mmol/L (3.5-5.5); Sodium, Blood 142 mmol/L (136-145)
--- NOTE | 2020-04-27 15:21 | NUR ---
PT TRANSFERED TO [facility] VIA GURNEY FROM [facility]. History, Chart, Medications and Allergies reviewed before start of procedure. Lungs clear T/O to Auscultation. Patient confirms NPO status and agrees with scheduled surgery.
--- NOTE | 2020-04-27 15:23 | NUR ---
04/27/20 1523 Everardo Nunez History, Chart, Medications and Allergies reviewed before start of procedure.MONITOR INTACT WITH CONTINUOUS PULSE OXIMETRY AND INTERMITTENT BP.3-LEAD EKG REVIEWED WITH PHYSICIAN PRIOR TO START OF PROCEDURE.O2 VIA N/C INTACT THROUGHOUT SEDATION/PROCEDURE. See Anesthesia record.
--- NOTE | 2020-04-27 19:18 | NUR ---
SHIFT SUMMARY NO ACUTE CHANGES THIS SHIFT. PATIENT HAS NOT BEEN CONFUSED THIS SHIFT. SHE IS ALERT AND ORIENTED. SHE IS NPO TODAY EXCEPT FOR MEDICATIONS FOR EGD AND THEN DANNIE IN AM 04/28. NYSTATIN POWDER ORDERED FOR SERAFIN AREA. BED LOW AND LOCKED, CALL LIGHT WITHIN REACH. PICC LINE INFUSING PER ORDERS. CBI CONT PER ORDERS. NG TO LOW INTERMITTENT SUCTION. REPORT GIVEN TO GLORIA MANCILLA.
--- NOTE | 2020-04-28 06:37 | NUR ---
SHIFT SUMMARY PATIENT ALERT AND VERY PLEASANT TO WORK WITH. SOME CONFUSION PRESENT AT TIMES. NO ACUTE CHANGES OVERNIGHT. NG TUBE HOOKED TO WALL SUCTION. PICC LINE PATENT AND INFUSING. LUONG PATENT AND DRAINING WITH CONTINUOUS BLADDER IRRIGATION. BED IN LOWEST POSITION WITH WHEELS LOCKED AND ALARM ON. CALL LIGHT WITHIN REACH. REPORT GIVEN TO ONCOMING RN.
--- NOTE | 2020-04-28 10:45 | NUR ---
PATIENT OFF UNIT TO HEART CENTER AT 0824. TELE YOUTH DIRECTOR NOTIFIED. PATIENT RETURNED TO UNIT AT 0950. O2 SAT 87% ON RA; PLACED O2 @ 2 L/MIN NC UNTIL FULLY RECOVERED. SLEEPING OFF AND ON, ABLE TO TAKE A.M. PO MEDS. MOTHER AT BEDSIDE.
--- NOTE | 2020-04-28 12:55 | NUR ---
PT HYPERTENSIVE AFTER DANNIE THIS MORNING, 150'S/100'S, HR 97-106. REPORTED THIS BY PHONE TO DR. CEDILLO AT 1245. PROVIDER STATED OK TO GIVE HYDRALAZINE PRN FOR DBP > 100.
--- NOTE | 2020-04-28 18:25 | NUR ---
SHIFT SUMMARY: HYPERTENSIVE AND TACHYCARDIC THROUGHOUT SHIFT; HYDRALAZINE IV GIVEN WITHOUT EFFECT, METOPROLOL ADDED. DENIES PAIN, N/V. NGT TO LIS, ORTEGA/YELLOW OUTPUT. BLADDER IRRIGATION D/C'D NO FURTHER HEMATURIA, URINE IS CLEAR YELLOW. ON ROOM AIR. DANNIE COMLETED. ABD STILL ROUNDED, NON TENDER, IS PASSING FLATUS.
--- NOTE | 2020-04-29 04:58 | NUR ---
MEDICAL RESEARCH ASSISTANT SUMMARY NO ACUTE CHANGES THIS SHIFT. PT AAOX2-3, SOME OCCASIONAL CONFUSION/FORGETFULNESS. CONTINUES ON LOW INTERMITTENT SUCTION THROUGH NG TUBE. PT DENIES NAUSEA. URINE IN LUONG CATHETER REMAINS CLEAR YELLOW WITH NO BLOOD NOTED THROUGH THE NIGHT. PT DOES REPORT PASSING SOME GAS BUT HAS YET TO HAVE A BM. BP BETTER CONTROLLED TONIGHT, HR REMAINS TACHY BUT MORE CONTROLLED WITH AVG 110'S. VSS, WILL CONTINUE TO MONITOR.
--- NOTE | 2020-04-29 20:37 | NUR ---
SHIFT SUMMARY: NO ACUTE EVENTS THIS SHIFT. A&O X 4, PLEASANT. NGT REMOVED, ADVANCED TO SOFT LOW FAT DIET. ABDOMEN SOFT AND NON TENDER, IS PASSING FLATUS, NO N/V. PICC DRESSING CHANGED; WHITE AND [place] PORTS DO NOT FLUSH OR DRAW, GENERAL MATCHER AWARE. MEPILEX DRESSINGS PLACED ON COCCYX AND BILATERAL TROCHANETER EXCORIATIONS. HAD VISITS FROM MOM AND SON TODAY, IS IN GOOD SPIRITS. NO EVENTS ON TELEMETRY, DENIED PAIN.
--- NOTE | 2020-04-30 04:17 | NUR ---
SHIFT SUMMARY PT HAS HAD NO ACUTE CHANGES THIS SHIFT, NO C/O ANY KIND, SLEPT T/O THE NIGHT & SLEEPING AT THIS TIME, CALL LIGHT IN REACH, WILL CONT TO MONITOR UNTIL REPORT GIVEN TO DAY RN.
--- NOTE | 2020-04-30 19:10 | NUR ---
SHIFT SUMMARY- PT IS A/O, PLESANT AND COOPERATIVE. SHE IS RECIEVING IV ANTIBIOTICS. SHE IS EATING AND DRINKING WELL. SHE HAS NOT HAD A BM IN SEVERAL DAYS, BOWEL CARE GIVEN. HER MOTHER WAS AT BEDSIDE FOR MUCH OF THIS SHIFT
[2020-05-01 05:30] LABS: BASOPHILS ABSOLUTE AUTO 0.08 K/mm3 (0.00-0.23); BASOPHILS PERCENT AUTO 1 % (0-2); EOSINOPHILS ABSOLUTE AUTO 0.22 K/mm3 (0.00-0.68); EOSINOPHILS PERCENT AUTO 2 % (0-6); IMMATURE GRAN ABSOLUTE AUTO 0.18 K/mm3 (0.00-0.10); IMMATURE GRAN PERCENT AUTO 2 % (0-1); LYMPHOCYTES ABSOLUTE AUTO 2.82 K/mm3 (0.84-5.20); LYMPHOCYTES PERCENT AUTO 25 % (21-46); MONOCYTES ABSOLUTE AUTO 0.69 K/mm3 (0.16-1.47); MONOCYTES PERCENT AUTO 6 % (4-13); Mean Corpuscular HGB 26.9 pg (26.0-34.0); Mean Corpuscular Volume 90 fL (80-100); Mean Platelet Volume 9.2 fL (9.1-12.4); NEUTROPHILS ABSOLUTE AUTO 7.52 K/mm3 (1.96-9.15); NEUTROPHILS PERCENT AUTO 65 % (41-73); Platelet Count 425 K/mm3 (150-400); RDW Coefficient Variation 17.8 % (11.7-14.2); RDW Standard Deviation 58.8 fL (35.1-46.3); Red Blood Cell Count 3.34 M/mm3 (3.80-5.20); White Blood Cell Count 11.51 K/mm3 (4.00-11.30)
[2020-05-01 05:49] LABS: Alanine Aminotransfer (ALT/SGP 15 U/L (12-78); Albumin, Blood 2.3 g/dL (3.4-5.0); Albumin/Globulin Ratio 0.5 (0.8-1.8); Alk Phos 75 U/L (50-136); Anion Gap 6 mmol/L (6-16); Aspartate Aminotrans (AST/SGOT 13 U/L (12-37); Bilirubin, Total 0.2 mg/dL (0.1-1.0); Blood Urea Nitrogen 5 mg/dL (8-24); Bun/Creatinine Ratio 7.4 (12.0-20.0); CO2, Blood 23 mmol/L (21-32); Calcium, Blood 8.6 mg/dL (8.5-10.1); Chloride, Blood 112 mmol/L (98-108); Creatinine, Blood 0.68 mg/dL (0.40-1.00); Glomerular Filtration Rate >60 (60-); Glucose, Blood 83 mg/dL (70-99); Magnesium, Blood 2.2 mg/dL (1.6-2.4); Phosphorus, Blood 3.1 mg/dL (2.5-4.9); Potassium, Blood 3.7 mmol/L (3.5-5.5); Sodium, Blood 141 mmol/L (136-145); Total Protein, Blood 7.3 g/dL (6.4-8.2)
--- NOTE | 2020-05-01 05:52 | NUR ---
SHIFT SUMMARY NO ACUTE CHANGES THIS SHIFT, NO C/O ANY KIND, SLEPT INTERMITTENTLY T/O THE NIGHT, NO BM THIS SHIFT, PT WATCHING TV, CALL LIGHT IN REACH, WILL CONT TO MONITOR UNTIL REPORT GIVEN TO DAY RN.
[2020-05-01] MEDS ORDERED: ACET325 PO (17:20)
[2020-05-01] MEDS ORDERED: METO50ER PO (17:23)
[2020-05-01] MEDS ORDERED: NYAMYC15 G1 TOP (17:25)
--- NOTE | 2020-05-01 20:16 | NUR ---
SHIFT SUMMARY- PT IS A/O, PLESANT AND COOPERATIVE. SHE IS EATING AND DRINKING WELL. SHE REPORTS THAT SHE HAS NOT HAD A BM AND THIS IS DELAYING HER DISCHARGE. DR. SCHULTE DECIDED TO KEEP HER ONE MORE NIGHT AND DO A SUDS ENEMA TO SEE IF SHE WILL HAVE A BM. THIS MADE THE PT FEEL MORE COMFORTABLE. SHE RECIEVED A BED BATH THIS MORNING.
--- NOTE | 2020-05-02 05:00 | NUR ---
SUMMARY PT GIVEN SOAP SUDS ENEMA. PT HAD SOME NOTED BM POST ENEMA. PT HAD SOME REPORTED PAIN IN R 4TH TOE. PT STATES THAT PAIN IS NEW. PT TX W/ TYLENOL AND REPORTED RELIEF. PT HAS BEEN CHANGED AND REPOSITIONED NEEDED. PT HAS SLEPT OFF AND ON. PT CURRENTLY AWAKE AND WATCHING TV. PT COMFORTABLE AND RELAXED. CALL LIGHT IN REACH.
--- NOTE | 2020-05-02 10:54 | NUR ---
PT DISCHARGED FROM THE UNIT SHE LEFT VIA WHEELCHAIR, WITH TRANSPORT. DISCHARGE INSTRUCTIONS REVIEWED. PICC LINE REMOVED. MEDICATIONS FAXED TO [facility] YESTERDAY, FATHER PICKED UP. PT WAS A LIFT TO THE CHAIR
[2020-05-06] MEDS ORDERED: ONDA4ODT MM (14:49)
== END 2020-05-02 10:12 | disposition home or self-care (01) | DRG 698 ==
LOC: MHTC 09:57 → PCU 16:24 → ICUW 17:20 → MHTC 17:27 → MEDS 17:30 → ICUW 17:30 → MEDS 04-24 15:20
PROVIDERS: Hospitalist; Internal Medicine Gastroenterology; Pharmacist; Radiology Diagnostic Radiology; Student in an Organized Health Care Education/Training Program; ADMIT Internal Medicine
PROC: 5A2204Z Restoration of Cardiac Rhythm, Single (ICD-10-PCS; principal; 2020-04-21)
PROC: BT101ZZ Fluoroscopy of Bladder using Low Osmolar Contrast (ICD-10-PCS; 2020-04-21)
PROC: 0DJ08ZZ Inspection of Upper Intestinal Tract, Via Natural or Artificial Opening Endoscopic (ICD-10-PCS; 2020-04-27)
PROC: B246ZZ4 Ultrasonography of Right and Left Heart, Transesophageal (ICD-10-PCS; 2020-04-28)
DX: T83.511A Infection and inflammatory reaction due to indwelling urethral catheter, initial encounter (principal); A41.51 Sepsis due to Escherichia coli [E. coli]; R65.20 Severe sepsis without septic shock; I48.92 Unspecified atrial flutter; N99.820 Postprocedural hemorrhage of a genitourinary system organ or structure following a genitourinary system procedure; N39.0 Urinary tract infection, site not specified; Z20.828 Contact with and (suspected) exposure to other viral communicable diseases; N31.9 Neuromuscular dysfunction of bladder, unspecified; R32 Unspecified urinary incontinence; G35 Multiple sclerosis; K21.9 Gastro-esophageal reflux disease without esophagitis; I10 Essential (primary) hypertension; E66.01 Morbid (severe) obesity due to excess calories; E83.39 Other disorders of phosphorus metabolism; G47.00 Insomnia, unspecified; B95.4 Other streptococcus as the cause of diseases classified elsewhere; K31.84 Gastroparesis; I95.81 Postprocedural hypotension; B96.4 Proteus (mirabilis) (morganii) as the cause of diseases classified elsewhere; B96.1 Klebsiella pneumoniae [K. pneumoniae] as the cause of diseases classified elsewhere; Z68.32 Body mass index [BMI] 32.0-32.9, adult
CPT/HCPCS: 36415; 36569; 36600; 51102; 51700; 51703; 71045; 74176; 76705; 76857; 76998; 80048; 80053; 80069; 80202; 81001; 82803; 82947; 83605; 83735; 84100; 85014; 85018; 85025; 85610; 85730; 87040; 87077; 87086; 87186; 93005; 93010; 93306; 93312; 93325; 94640; 94760; 99152; 99153; A9270; C1729; C1751; J0153; J0282; J0360; J0690; J1956; J2001; J2060; J2250; J2310; J2405; J2543; J2704; J2765; J3010; J3370; J3480; J7030; J7040; J7060; J7120; Q9967; U0002

== ENCOUNTER → 2020-07-28 | Outpatient (CLI) | payer OTHER ==
[~2020-07-28] MED LIST changes: +ACET325 PO; +METO50ER PO; +NYAMYC15 G1 TOP; +ONDA4ODT MM
[2020-07-28 19:11] LABS: Bilirubin, Urine Neg (Neg); Glucose Qualitative, Urine Neg (Neg); Urobilinogen, Urine NORM (Normal)
[2020-07-28 19:13] LABS: Blood, Urine 5+ (Neg); Ketones, Urine 1+ (Neg); Leukocyte Esterase, Urine 3+ (Neg); Nitrite, Urine Pos (Neg); Protein, Urine 3+ (Neg)
[2020-07-28 19:19] LABS: Color, Urine Yellow (P-Yellow)
[2020-07-28 19:20] LABS: Appearance, Urine Cloudy (Clear); White Blood Cells, Urine TNTC /hpf (0-5)
[2020-07-28 19:21] LABS: Bacteria Many /hpf; Red Blood Cells, Urine 25-50 /hpf (0-2); Squamous Epithelial Cells Many /hpf (Few)
== END | disposition home or self-care (01) ==
LOC: LAB 16:43 → LAB SHORT 16:43
PROVIDERS: Urology Female Pelvic Medicine and Reconstructive Surgery
DX: N39.41 Urge incontinence (principal); N32.89 Other specified disorders of bladder; N31.9 Neuromuscular dysfunction of bladder, unspecified; Z87.440 Personal history of urinary (tract) infections
CPT/HCPCS: 81001; 87086

== ENCOUNTER → 2020-10-15 | Outpatient (CLI) | payer OTHER ==
[~2020-10-15] MED LIST changes: +CEFP200 PO; +KETO15TC TOP
[2020-10-15 18:22] LABS: Source, Urine Catheter
[2020-10-15 19:02] LABS: Bilirubin, Urine Neg (Neg); Blood, Urine 1+ (Neg); Glucose Qualitative, Urine Neg (Neg); Ketones, Urine Neg (Neg); Leukocyte Esterase, Urine 2+ (Neg); Nitrite, Urine Neg (Neg); Protein, Urine Neg (Neg); Specific Gravity, Urine 1.015 (1.003-1.022); Urobilinogen, Urine NORM (Normal)
[2020-10-15 19:13] LABS: Appearance, Urine Hazy (Clear); Color, Urine Pale Yellow (P-Yellow)
[2020-10-15 19:14] LABS: Red Blood Cells, Urine Not Seen /hpf (0-2); Squamous Epithelial Cells Mod /hpf (Few)
[2020-10-15 19:15] LABS: Bacteria Few /hpf
== END | disposition home or self-care (01) ==
LOC: LAB 11:00 → LAB SHORT 11:00
PROVIDERS: Family Medicine
DX: F44.89 Other dissociative and conversion disorders (principal)
CPT/HCPCS: 81001; 87077; 87086; 87186

== ENCOUNTER 2020-11-11 13:53 | Emergency (ER) | payer OTHER ==
[~2020-11-11] VITALS: Ht 162.6 cm; Wt 83.0 kg
[~2020-11-11 13:53] MED LIST changes: -CEFP200 PO; -KETO15TC TOP
[2020-11-11 14:47] LABS: BASOPHILS ABSOLUTE AUTO 0.06 K/mm3 (0.00-0.23); BASOPHILS PERCENT AUTO 0 % (0-2); EOSINOPHILS ABSOLUTE AUTO 0.06 K/mm3 (0.00-0.68); EOSINOPHILS PERCENT AUTO 0 % (0-6); Hematocrit 44.4 % (33.0-51.0); Hemoglobin 13.6 g/dL (11.5-16.0); IMMATURE GRAN ABSOLUTE AUTO 0.16 K/mm3 (0.00-0.10); IMMATURE GRAN PERCENT AUTO 1 % (0-1); LYMPHOCYTES ABSOLUTE AUTO 1.42 K/mm3 (0.84-5.20); LYMPHOCYTES PERCENT AUTO 7 % (21-46); MONOCYTES ABSOLUTE AUTO 0.85 K/mm3 (0.16-1.47); MONOCYTES PERCENT AUTO 4 % (4-13); Mean Corpuscular HGB 26.9 pg (26.0-34.0); Mean Corpuscular HGB Conc 30.6 g/dL (31.5-36.5); Mean Corpuscular Volume 88 fL (80-100); Mean Platelet Volume 8.8 fL (9.1-12.4); NEUTROPHILS ABSOLUTE AUTO 17.78 K/mm3 (1.96-9.15); NEUTROPHILS PERCENT AUTO 87 % (41-73); Platelet Count 403 K/mm3 (150-400); RDW Coefficient Variation 14.9 % (11.7-14.2); RDW Standard Deviation 48.2 fL (35.1-46.3); Red Blood Cell Count 5.05 M/mm3 (3.80-5.20); White Blood Cell Count 20.33 K/mm3 (4.00-11.30)
[2020-11-11 14:56] LABS: Source, Urine Catheter
[2020-11-11 14:59] LABS: Alanine Aminotransfer (ALT/SGP 27 U/L (12-78); Albumin, Blood 3.1 g/dL (3.4-5.0); Albumin/Globulin Ratio 0.7 (0.8-1.8); Alk Phos 95 U/L (50-136); Anion Gap 8 mmol/L (6-16); Aspartate Aminotrans (AST/SGOT 17 U/L (12-37); Bilirubin, Total 0.4 mg/dL (0.1-1.0); Blood Urea Nitrogen 11 mg/dL (8-24); Bun/Creatinine Ratio 23.7 (12.0-20.0); CO2, Blood 21 mmol/L (21-32); Calcium, Blood 8.8 mg/dL (8.5-10.1); Chloride, Blood 110 mmol/L (98-108); Creatinine, Blood 0.46 mg/dL (0.40-1.00); Globulin, Blood 4.7 g/dL (2.2-4.0); Glomerular Filtration Rate >60 (60-); Glucose, Blood 129 mg/dL (70-99); Potassium, Blood 3.2 mmol/L (3.5-5.5); Sodium, Blood 139 mmol/L (136-145); Total Protein, Blood 7.8 g/dL (6.4-8.2)
[2020-11-11 15:11] LABS: Appearance, Urine Hazy (Clear); Blood, Urine 4+ (Neg); Color, Urine Amber (P-Yellow); Glucose Qualitative, Urine Neg (Neg); Ketones, Urine 1+ (Neg); Leukocyte Esterase, Urine 3+ (Neg); Nitrite, Urine Pos (Neg); Protein, Urine 2+ (Neg); Specific Gravity, Urine 1.025 (1.003-1.022); Urobilinogen, Urine 1+ (Normal)
[2020-11-11 15:21] LABS: Bilirubin, Urine 1+ (Neg)
[2020-11-11 15:22] LABS: Bacteria Many /hpf; Squamous Epithelial Cells Few /hpf (Few); White Blood Cells, Urine TNTC /hpf (0-5)
[2020-11-11] MEDS ORDERED: ONDA4ODT MM (17:27)
[2020-11-11] MEDS ORDERED: CEFP200 PO (17:27)
[2021-02-26] MEDS ORDERED: METO50ER PO
[2021-02-26] MEDS ORDERED: Toviaz8 MG PO (00:01)
[2021-02-26] MEDS ORDERED: XARELTO20 MG PO (00:02)
== END 2020-11-11 18:39 | disposition home or self-care (01) ==
LOC: ER 13:53
PROVIDERS: Emergency Medicine
DX: T83.518A Infection and inflammatory reaction due to other urinary catheter, initial encounter (principal); R19.7 Diarrhea, unspecified; K21.9 Gastro-esophageal reflux disease without esophagitis; E11.40 Type 2 diabetes mellitus with diabetic neuropathy, unspecified; Z79.01 Long term (current) use of anticoagulants; Z79.899 Other long term (current) drug therapy; Z87.891 Personal history of nicotine dependence
CPT/HCPCS: 80053; 81001; 83690; 85025; 87086; 96361; 96374; 99284-25; A9270; J2405; J7030

== ENCOUNTER 2020-12-01 18:40 | Emergency (ER) | payer OTHER ==
[~2020-12-01] VITALS: Ht 162.6 cm; Wt 81.7 kg
[~2020-12-01 18:40] MED LIST changes: +CEFP200 PO
[2021-02-26] MEDS ORDERED: METO50ER PO
[2021-02-26] MEDS ORDERED: Toviaz8 MG PO (00:01)
[2021-02-26] MEDS ORDERED: XARELTO20 MG PO (00:02)
== END 2020-12-02 01:31 | disposition home or self-care (01) ==
LOC: ER 18:40
DX: K59.00 Constipation, unspecified (principal); I48.92 Unspecified atrial flutter; K21.9 Gastro-esophageal reflux disease without esophagitis; E11.9 Type 2 diabetes mellitus without complications; Z79.899 Other long term (current) drug therapy; Z87.891 Personal history of nicotine dependence
CPT/HCPCS: 99283

== ENCOUNTER 2021-02-26 23:07 | Emergency (ER) | payer OTHER ==
[~2021-02-26] VITALS: Ht 162.6 cm; Wt 71.2 kg
[2021-02-26] MEDS ORDERED: BREO ELLIPTA 11 EAC1 INH (23:56)
[2021-02-26] MEDS ORDERED: KETO15TC TOP (23:59)
[2021-02-27 00:55] LABS: Source, Urine Catheter
[2021-02-27 00:57] LABS: Appearance, Urine Cloudy (Clear); Bilirubin, Urine Neg (Neg); Blood, Urine 5+ (Neg); Color, Urine Yellow (P-Yellow); Glucose Qualitative, Urine Neg (Neg); Ketones, Urine Neg (Neg); Leukocyte Esterase, Urine 3+ (Neg); Nitrite, Urine Pos (Neg); Protein, Urine 3+ (Neg); Specific Gravity, Urine 1.015 (1.003-1.022); Urobilinogen, Urine NORM (Normal)
[2021-02-27 01:03] LABS: Bacteria Many /hpf; Squamous Epithelial Cells Not Seen /hpf (Few); White Blood Cells, Urine TNTC /hpf (0-5)
[2021-02-27] MEDS ORDERED: CEFP200 PO (01:48)
== END 2021-02-27 02:10 | disposition home or self-care (01) ==
LOC: ER 23:07
PROVIDERS: Emergency Medicine
DX: T83.098A Other mechanical complication of other urinary catheter, initial encounter (principal); N39.0 Urinary tract infection, site not specified; Z79.899 Other long term (current) drug therapy; Z79.01 Long term (current) use of anticoagulants; Z87.891 Personal history of nicotine dependence
CPT/HCPCS: 51705; 81001; 87077; 87086; 87186; 99283-25; A9270; C2627